=== PATIENT | male | born 1980 | race Caucasian/White ===

== ENCOUNTER 2016-10-23 19:34 | Emergency (ER) | payer BC ==
[~2016-10-23] VITALS: Ht 172.7 cm; Wt 89.4 kg
[~2016-10-23 19:34] MED LIST: BACL10TA PO; CYCL10TA6 PO; KETO10TA PO; MULT-506 PO; NRN600 PO; TRAM-10 PO
[2016-10-23 19:41] VITALS: Ht 172.7 cm; Wt 89.4 kg
[2016-10-23] MEDS ORDERED: KETOROLAC TROMETHAMINE 30 MG/ML VIAL IV STA (20:02)
[2016-10-23] MEDS ORDERED: ONDANSETRON INJ 2 MG/ML 2 ML VIAL IV STA (20:02)
[2016-10-23] MEDS ORDERED: HYDROmorphone INJ 1 MG/ML SYR IV STA ×2 (20:02→21:49)
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
[2016-10-23] MEDS ORDERED: GABA800T PO (21:00)
[2016-10-23] MEDS ORDERED: BACL20TA PO (21:00)
[2016-10-23] MEDS ORDERED: DOXE50CA3 PO (21:00)
[2016-10-23] MEDS ORDERED: CTP/1 PO (21:00)
[2016-10-23] MEDS ORDERED: NALT380I IM (21:00)
[2016-10-23] MEDS ORDERED: ALBU18002 INH (21:00)
[2016-10-23] MEDS ORDERED: SERT-234 PO (21:04)
[2016-10-23] MEDS ORDERED: OXYC1TAB3 PO (21:56)
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
[2016-10-23] MEDS ORDERED: OXYCODONE IR HOME PACK PO ONE (22:00)
[2016-10-23 22:10] VITALS: BP 131/81; PULSE 96; TEMP 36.5; O2SAT 99
== END 2016-10-23 22:10 | disposition home or self-care (01) ==
LOC: C.EDB 19:35 → C.EDC 22:10
DX: M54.5 Low back pain (principal); V19.3XXA Pedal cyclist (driver) (passenger) injured in unspecified nontraffic accident, initial encounter; F17.200 Nicotine dependence, unspecified, uncomplicated; Z87.828 Personal history of other (healed) physical injury and trauma

== ENCOUNTER 2017-07-16 23:06 | Emergency (ER) | payer BC ==
[~2017-07-16] VITALS: Ht 172.7 cm; Wt 87.2 kg
[~2017-07-16 23:06] MED LIST changes: +ALBU18002 INH; -BACL10TA PO; +BACL20TA PO; +CTP/1 PO; +DOXE50CA3 PO; +GABA800T PO; -KETO10TA PO; -MULT-506 PO; +NALT380I IM; -NRN600 PO; +SERT-234 PO; -TRAM-10 PO
[2017-07-16 23:14] VITALS: TEMP 36.4; Ht 172.7 cm; Wt 87.2 kg
[2017-07-16] MEDS ORDERED: KETOROLAC TROMETHAMINE 30 MG/ML VIAL IV STA (23:29)
[2017-07-16] MEDS ORDERED: ONDANSETRON INJ 2 MG/ML 2 ML VIAL IV STA (23:29)
[2017-07-16] MEDS ORDERED: MoRPHine SULFATE 4 MG/ML 1 ML CARP\\VIAL IV STA (23:29)
[2017-07-16] MEDS ORDERED: SODIUM CHLORIDE 0.9% 1000ML 1,000 ML IV STA (23:29)
[2017-07-16 23:55] LABS: BASO % 0.5 %; BASO ABS # 0.05 K/uL (0-0.2); EOS ABS # 0.42 K/uL (0-0.5); HEMATOCRIT 36.8 % (42-52); HEMOGLOBIN 12.7 g/dL (14.0-18.0); IG# 0.02 K/uL (0.00-0.02); LYMPH % 27.2 %; LYMPH ABS # 2.87 K/uL (1.2-3.4); MEAN CELL VOLUME 85.6 fL (80-100); MEAN CORPUSCULAR HEMOGLOBIN 29.5 pg (25-34); MEAN CORPUSCULAR HGB CONC 34.5 g/dl (32-36); MEAN PLATELET VOLUME 8.2 fL (7.4-10.4); MONO % 7.2 %; MONO ABS # 0.76 K/uL (0.11-0.59); NEUT % 60.9 %; NEUT ABS # 6.43 K/uL (1.4-6.5); PLATELET COUNT 319 K/uL (130-400); RED CELL DISTRIBUTION WIDTH CV 13.1 % (11.5-14.5); RED CELL DISTRIBUTION WIDTH SD 40.9 fL (36.4-46.3); WHITE BLOOD COUNT 10.55 K/uL (4.8-10.8)
[2017-07-17 00:07] LABS: ALBUMIN 3.6 gm/dl (3.4-5.0); CALCIUM 7.9 mg/dl (8.5-10.1); CREATININE 1.28 mg/dl (0.60-1.40); POTASSIUM 3.8 mmol/L (3.5-5.1)
[2017-07-17 00:09] LABS: TOTAL PROTEIN 6.5 gm/dl (6.4-8.2)
[2017-07-17] MEDS ORDERED: OPTIRAY 320 IV PRN (00:45)
[2017-07-17] MEDS ORDERED: MoRPHine SULFATE 4 MG/ML 1 ML CARP\\VIAL IV STA (00:56)
[2017-07-17] MEDS ORDERED: ONDANSETRON HOME PACK 4MG OD TAB PO ONE (01:00)
[2017-07-17] MEDS ORDERED: OXYCODONE IR HOME PACK PO ONE (01:00)
--- NOTE | 2017-07-17 01:56 | EMERGENCY ROOM VISIT NOTE ---
History First contact with patient: 23:18 Chief Complaint: BACK PAIN Stated Complaint: BACK PAIN, ABDOMINAL PAIN History of Present Illness The patient is a 37 year old male who presents to the Emergency Room with complaints of severe left flank pain that radiates to his groin described as aching, ranging in severity currently 8 out of 10. Nothing makes it better or worse. Patient plans of left testicular discomfort. No history of epididymitis or torsion. No history of kidney stones. He had sciatica before but this feels different. Patient went to the chiropractor's night with no improvement of his pain. Patient denies chest pain, dyspnea, fever, chills, vomiting, diarrhea, urinary symptoms. No injury to the area. Review of Systems An 10 system review of systems was completed with positives and pertinent negatives listed in the HPI. Past Medical/Surgical History Medical Problems: (1) Back pain (2) Back pain with radiation (3) History of alcohol abuse (4) Intervertebral Disc Disorders W Radiculopathy, Lumbar Region (5) Laceration of left knee (6) Liver enzyme elevation (7) Shortness of breath (8) Shortness of breath Surgical Problems: (1) S/p repair of shoulder dislocation (2) S/P rotator cuff repair Social History Smoking Status: Never Smoker Drug Use: none Marital Status: Housing Status: lives with significant other Occupation Status: employed Current/Historical Medications Scheduled Doxepin (Sinequan), 50-100 MG PO HS Gabapentin (Neurontin), 800 MG PO QID Naltrexone (Vivitrol), 1 DOSE IM UD Sertraline (Zoloft), 100 MG PO DAILY Scheduled PRN Albuterol Sulfate (Proair Respiclick), 2 PUFFS INH Q4H PRN for Wheezing Baclofen (Lioresal), 20 MG PO QID PRN for Muscle Relaxer Clonidine Hcl (Catapres), 0.1 MG PO QID PRN for Anxiety Cyclobenzaprine Hcl (Flexeril), 10 MG PO TID PRN for Muscle Spasm Physical Exam Vital Signs Date Time Temp Pulse Resp B/P (MAP) Pulse Ox O2 Delivery O2 Flow Rate FiO2 07/17/17 01:15 75 16 126/64 97 Room Air 07/16/17 23:14 36.4 87 21 123/81 99 Room Air Physical Exam VITALS: Vitals are noted on the nurse's note and reviewed by myself. Vital signs stable. GENERAL: White male who appears in pain, in no acute distress, nondiaphoretic, well-developed well-nourished. SKIN: Capillary reflex less than 2 seconds. HEENT: Normocephalic. PERRLA. EOMI. Nares patent. Mucous membranes moist. Neck is supple without nuchal rigidity. HEART: Regular rate and rhythm without murmurs gallops or rubs. LUNGS: Clear to auscultation bilaterally without wheezes, rales or rhonchi. No retractions or accessory muscle use. ABDOMEN: Positive bowel sounds x 4. Normal tympanic percussion. Soft, tender to palpation left lower quadrant, without masses or organomegaly. Lopez sign negative. No guarding or rebound tenderness. No CVA tenderness exam: Normal male genitalia, testicles nontender to palpation. No epididymitis tenderness. 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 No pedal edema. No calf tenderness. There is no thoracic or lumbar tenderness. NEURO: Patient was alert and oriented to person place and time. Normal sensation to light and sharp touch. No focal neurological deficits. Medical Decision & Procedures Laboratory Results 07/16/17 23:40 Red Blood Count 4.30, Mean Corpuscular Volume 85.6, Mean Corpuscular Hemoglobin 29.5, Mean Corpuscular Hemoglobin Concent 34.5, Mean Platelet Volume 8.2, Neutrophils (%) (Auto) 60.9, Lymphocytes (%) (Auto) 27.2, Monocytes (%) (Auto) 7.2, Eosinophils (%) (Auto) 4.0, Basophils (%) (Auto) 0.5, Neutrophils # (Auto) 6.43, Lymphocytes # (Auto) 2.87, Monocytes # (Auto) 0.76, Eosinophils # (Auto) 0.42, Basophils # (Auto) 0.05 07/16/17 23:40 Test 07/16/17 23:40 07/16/17 23:50 White Blood Count 10.55 K/uL (4.8-10.8) Red Blood Count 4.30 M/uL (4.7-6.1) Hemoglobin 12.7 g/dL (14.0-18.0) Hematocrit 36.8 % (42-52) Mean Corpuscular Volume 85.6 fL (80-100) Mean Corpuscular Hemoglobin 29.5 pg (25-34) Mean Corpuscular Hemoglobin Concent 34.5 g/dl (32-36) Platelet Count 319 K/uL (130-400) Mean Platelet Volume 8.2 fL (7.4-10.4) Neutrophils (%) (Auto) 60.9 % Lymphocytes (%) (Auto) 27.2 % Monocytes (%) (Auto) 7.2 % Eosinophils (%) (Auto) 4.0 % Basophils (%) (Auto) 0.5 % Neutrophils # (Auto) 6.43 K/uL (1.4-6.5) Lymphocytes # (Auto) 2.87 K/uL (1.2-3.4) Monocytes # (Auto) 0.76 K/uL (0.11-0.59) Eosinophils # (Auto) 0.42 K/uL (0-0.5) Basophils # (Auto) 0.05 K/uL (0-0.2) RDW Standard Deviation 40.9 fL (36.4-46.3) RDW Coefficient of Variation 13.1 % (11.5-14.5) Immature Granulocyte % (Auto) 0.2 % Immature Granulocyte # (Auto) 0.02 K/uL (0.00-0.02) Anion Gap 7.0 mmol/L (3-11) Est Creatinine Clear Calc Drug Dose 83.2 ml/min Estimated GFR () 81.2 Estimated GFR (Non- 70.0 BUN/Creatinine Ratio 11.5 (10-20) Calcium Level 7.9 mg/dl (8.5-10.1) Total Bilirubin 0.2 mg/dl (0.2-1) Direct Bilirubin 0.1 mg/dl (0-0.2) Aspartate Amino Transf (AST/SGOT) 22 U/L (15-37) Alanine Aminotransferase (ALT/SGPT) 37 U/L (12-78) Alkaline Phosphatase 84 U/L (45-117) Total Protein 6.5 gm/dl (6.4-8.2) Albumin 3.6 gm/dl (3.4-5.0) Lipase 120 U/L (73-393) Urine Color DK YELLOW Urine Appearance CLEAR (CLEAR) Urine pH 6.5 (4.5-7.5) Urine Specific [place] 1.023 (1.000-1.030) Urine Protein NEG (NEG) Urine Glucose (UA) NEG (NEG) Urine Ketones NEG (NEG) Urine Occult Blood 3+ (NEG) Urine Nitrite NEG (NEG) Urine Bilirubin NEG (NEG) Urine Urobilinogen NEG (NEG) Urine Leukocyte Esterase NEG (NEG) Urine WBC (Auto) 1-5 /hpf (0-5) Urine RBC (Auto) >30 /hpf (0-4) Urine Hyaline Casts (Auto) 1-5 /lpf (0-5) Urine Epithelial Cells (Auto) 5-10 /lpf (0-5) Urine Bacteria (Auto) NEG (NEG) Medications Administered Medications (Trade) Dose Ordered Sig/Shivam Route Start Time Stop Time Status Last Admin Dose Admin Sodium Chloride 1,000 ml @ 999 mls/hr Q1H1M STAT IV 07/16/17 23:29 07/17/17 00:29 DC 07/16/17 23:41 999 MLS/HR Ondansetron HCl (Zofran Inj) 4 mg NOW STAT IV 07/16/17 23:29 07/16/17 23:31 DC 07/16/17 23:41 4 MG Ketorolac Tromethamine (Toradol Inj) 10 mg NOW STAT IV 07/16/17 23:29 07/16/17 23:31 DC 07/16/17 23:42 10 MG Morphine Sulfate (MoRPHine SULFATE INJ) 4 mg NOW STAT IV 07/16/17 23:29 07/16/17 23:32 DC 07/16/17 23:44 4 MG Morphine Sulfate (MoRPHine SULFATE INJ) 4 mg NOW STAT IV 07/17/17 00:56 07/17/17 00:57 DC 07/17/17 01:12 4 MG ED Course Prior records/ancillary studies reviewed. Triage Nursing notes reviewed. Additional history obtained from the family. The patient's history was concerning for left flank pain. Differential diagnosis: Etiologies such as renal colic, appendicitis, diverticulitis, mesenteric ischemia, aortic pathology, infections, inflammatory bowel disease, PUD, biliary pathology, UTI, as well as others were entertained. Physical examination findings: As above. ER treatment provided: IV fluids, Toradol, morphine, Zofran On reassessment the patient felt better. Diagnostic interpretation by me: The labs revealed no leukocytosis. Urinalysis revealed hematuria. There was no sign of UTI. Imaging studies: CT of the abdomen and pelvis CT ABDOMEN & PELVIS With Contrast: 5 mm calculus at the left proximal ureter near the UPJ. Mild left hydronephrosis. Slight left perinephric stranding. Findings are likely obstructive. Correlate clinically to exclude any superimposed infection. No appendicitis, colitis, diverticulitis or bowel obstruction. No free air, free fluid or other acute disease. Radiologist: Juancarlos Orosco M.D. It appears that the patient has isolated renal colic from a left sided stone. Patient's pain was under control. Patient was neurovascularly and neurologically intact. He is well-appearing. He was advised to take medications as directed, strain his urine until the stone passes and to follow- up with family care and/or urology in a few days here in the ER sooner for severe pain, numbness, tingling, vomiting, worsening signs or symptoms or as needed. Patient had no signs of UTI. He is well-appearing. He requested to leave. By the evaluation outlined above emergent etiologies such as appendicitis, diverticulitis, mesenteric ischemia, aortic pathology, infections, inflammatory bowel disease, PUD, biliary pathology, UTI, as well as others were deemed relatively unlikely. The pt informed about the findings as listed above. All questions were answered and pleased with the treatment. Return instructions were outlined and the patient was discharged in stable condition. Outpatient prescription management: Oxy IR 5mg 1-2 po Q4 hrs prn Zofran Referral: The pt was referred to [facility] for follow up care regarding their stone. or The patient was referred back to their primary care physician for follow-up in 2 to 3 days for a recheck of the current condition. Case reviewed with my attending The chart was completed utilizing [employer] voice recognition software. Grammatical errors, random word insertions, pronoun errors, and incomplete sentences are an occassional consequence of this system due to software limitations, ambient noise, and hardware issues. Any formal questions or concerns about the content, text, or information contained within the body of this dictation should be directly addressed to the physician assistant counsel for clarification. Medical Decision As above [place] Drug Monitoring Program Search Results: patient reviewed within database, no issues identified Medication Reconcilliation Current Medication List: was personally reviewed by me Blood Pressure Screening Patient's blood pressure: Normal blood pressure Impression Primary Impression: Renal colic on left side Departure Information Dispostion Home / Self-Care Condition GOOD Referrals Rik Kumar PA-C (PCP) Patient Instructions [facility] Additional Instructions DO NOT drive, drink alcohol, operate machinery, or perform dangerous activities today. You were given medications in the ER that can affect your ability to safely function or operate a vehicle. Oxycodone Immediate Release (OxyIR) 5mg: Take 1-2 pills every four hours for pain. Avoid alcohol, operating machinery or dangerous equipment, working on ladders or roofs, DRIVING, or situations where being under the influence may be dangerous. It is recommended to use an [id number] stool softener such as Colace, 100mg twice daily while taking this medication to avoid constipation. Zofran 4 mg: Take one every six hours as needed for nausea. Avoid alcohol, operating machinery or dangerous equipment, working on ladders or roofs, DRIVING , or situations where being under the influence may be dangerous. Ibuprofen(Motrin, Advil) may be used for fever or pain. Use 600mg every six hours as needed. Take with food. Avoid using more than 2400mg in a 24 hour period. Do not use 2400mg per day for more than three consecutive days without physician direction. Prolonged inappropriate use can lead to stomach upset or ulcers. This medication can be taken if you need to drive, work, or perform activities which may be dangerous when taking narcotic pain medication. (AND/OR) Acetaminophen(Tylenol) may be used for fever or pain. Use 1000mg every six hours as needed. Avoid using more than 3000mg in a 24 hour period. This medication can be taken if you need to drive, work, or perform activities which may be dangerous when taking narcotic pain medication. Strain your urine and collect all the stones or debris for the urologists. Rest and avoid strenuous activity until your stone passes and symptoms resolve. Drink plenty of fluids. Continue current medications. Return to the ER for worsening abdominal or back pain, vomiting, fevers, passing out, or as needed. Follow up with urology in 2-3 days, call for an appointment.
[2017-07-17] MEDS ORDERED: ONDA4TAB10 SL (02:00)
[2017-07-17] MEDS ORDERED: OXYC1TAB3 PO (02:00)
[2017-07-17 02:11] VITALS: BP 122/80; PULSE 74; O2SAT 97
--- NOTE | 2017-07-17 08:17 | DIAGNOSTIC IMAGING REPORT ---
ABDOMEN AND PELVIS CT WITH IV CONTRAST CT DOSE: 435.01 mGy.cm HISTORY: Left lower quadrant pain. TECHNIQUE: Multiaxial CT images of the abdomen and pelvis were performed following the use of intravenous contrast. A dose lowering technique was utilized adhering to the principles of ALARA. COMPARISON STUDY: None. FINDINGS: Mild dependent changes at the lung bases posteriorly. No pneumoperitoneum. No pneumatosis. No fractures within the visualized osseous structures. The liver, gallbladder, pancreas, spleen, adrenal glands, and right kidney are unremarkable. Delayed left nephrogram. This is secondary to an obstructing 4 mm stone within the left ureterovesical junction resulting and mild left hydronephrosis. Normal bladder. No retroperitoneal lymphadenopathy. No bowel wall thickening or obstruction. Normal appendix. Moderate stool seen throughout the colon. IMPRESSION: A 4 mm obstructing stone within the left ureteropelvic junction resulting in mild left hydronephrosis. Electronically signed by: Alfredo Betancourt M.D. 07/17/2017 8:15 AM Dictated Date/Time: 07/17/2017 8:08 AM
== END 2017-07-17 02:12 | disposition home or self-care (01) ==
LOC: C.EDB 23:06
DX: N23 Unspecified renal colic (principal); Z79.899 Other long term (current) drug therapy

== ENCOUNTER 2017-07-19 12:33 | Inpatient (IN) | payer BC ==
[~2017-07-19] VITALS: Ht 172.7 cm; Wt 84.1 kg
[~2017-07-19 12:33] MED LIST changes: +ONDA4TAB10 SL; +OXYC1TAB3 PO
[2017-07-19] MEDS ORDERED: KETOROLAC TROMETHAMINE 30 MG/ML VIAL IV STA (12:53)
[2017-07-19] MEDS ORDERED: ONDANSETRON INJ 2 MG/ML 2 ML VIAL IV STA (12:53)
[2017-07-19] MEDS ORDERED: SODIUM CHLORIDE 0.9% 1000ML 1,000 ML IV STA (12:53)
[2017-07-19 13:25] LABS: BASO % 0.4 %; BASO ABS # 0.04 K/uL (0-0.2); EOS % 3.1 %; EOS ABS # 0.35 K/uL (0-0.5); HEMATOCRIT 39.3 % (42-52); IG# 0.03 K/uL (0.00-0.02); LYMPH % 15.2 %; LYMPH ABS # 1.72 K/uL (1.2-3.4); MEAN CELL VOLUME 84.2 fL (80-100); MEAN CORPUSCULAR HGB CONC 35.6 g/dl (32-36); MEAN PLATELET VOLUME 8.2 fL (7.4-10.4); MONO % 4.8 %; MONO ABS # 0.55 K/uL (0.11-0.59); NEUT % 76.2 %; NEUT ABS # 8.66 K/uL (1.4-6.5); PLATELET COUNT 348 K/uL (130-400); RED CELL DISTRIBUTION WIDTH SD 39.2 fL (36.4-46.3); WHITE BLOOD COUNT 11.35 K/uL (4.8-10.8)
[2017-07-19 13:42] LABS: CALCIUM 9.1 mg/dl (8.5-10.1); CREATININE 0.99 mg/dl (0.60-1.40); POTASSIUM 3.6 mmol/L (3.5-5.1)
--- NOTE | 2017-07-19 13:47 | DIAGNOSTIC IMAGING REPORT ---
KUB CLINICAL HISTORY: Known stone, L abd and testicular pain pain COMPARISON STUDY: CT abdomen and pelvis 07/17/2017 FINDINGS: Nonvisualization of the bulk of the renal shadows due to overlying bowel content and bowel air. Nonobstructive bowel pattern. Small pelvic vascular calcification. IMPRESSION: Nondiagnostic study of the left upper urinary tracts due to overlying bowel gas. Minimal nonobstructive ileus. The above report was generated using voice recognition software. It may contain grammatical, syntax or spelling errors. Electronically signed by: Suraj Cerda M.D. 07/19/2017 1:46 PM Dictated Date/Time: 07/19/2017 1:44 PM
[2017-07-19] MEDS ORDERED: MoRPHine SULFATE 4 MG/ML 1 ML CARP\\VIAL IV STA (14:36)
--- NOTE | 2017-07-19 14:54 | DIAGNOSTIC IMAGING REPORT ---
RENAL ULTRASOUND HISTORY: Left ureteral stone, L abdominal and testicular pain COMPARISON: Abdomen and pelvis CT 07/17/2017. FINDINGS: Right kidney: 12 cm. No hydronephrosis. Normal corticomedullary differentiation and cortical thickness. Left kidney: 12 cm. No change in the mild left hydronephrosis. Normal corticomedullary differentiation and cortical thickness. Bladder: No bladder wall thickening. The bilateral ureteral jets were identified. IMPRESSION: 1. No change in mild left hydronephrosis. 2. Normal right kidney. Electronically signed by: Alfredo Betancourt M.D. 07/19/2017 2:52 PM Dictated Date/Time: 07/19/2017 2:50 PM
--- NOTE | 2017-07-19 15:42 | DIAGNOSTIC IMAGING REPORT ---
CHEST ONE VIEW PORTABLE CLINICAL HISTORY: PRE OP preoperative evaluation COMPARISON STUDY: 02/28/2016 FINDINGS: The bones soft tissues and hemidiaphragms are normal. The cardiomediastinal silhouette is normal. The lungs are clear. The pulmonary vasculature is normal. IMPRESSION: Negative chest. The above report was generated using voice recognition software. It may contain grammatical, syntax or spelling errors. Electronically signed by: Suraj Cerda M.D. 07/19/2017 3:41 PM Dictated Date/Time: 07/19/2017 3:40 PM
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
[2017-07-19] MEDS ORDERED: ACETAMINOPHEN 325 MG TAB PO PRN (15:45)
[2017-07-19] MEDS ORDERED: ALUMINUM/MAGNESIUM/SIMETH (MAALOX MAX) 30 ML UDC PO PRN (15:45)
[2017-07-19] MEDS ORDERED: MAGNESIUM HYDROXIDE SUSP 30 ML UDC PO PRN ×2 (15:45→19:30)
[2017-07-19] MEDS ORDERED: ONDANSETRON INJ 2 MG/ML 2 ML VIAL IV PRN (15:45)
[2017-07-19] MEDS ORDERED: POLYETHYLENE (MIRALAX) 17 GM PACK PO PRN (15:45)
[2017-07-19] MEDS ORDERED: HYDROmorphone INJ 0.5 MG/0.5 ML SYR IV PRN (15:45)
[2017-07-19 15:53] LABS: INR 0.9 (0.9-1.1)
[2017-07-19 16:07] VITALS: O2SAT 99
--- NOTE | 2017-07-19 16:44 | EMERGENCY ROOM VISIT NOTE ---
History First contact with patient: 12:47 Chief Complaint: KIDNEY STONE Stated Complaint: RENAL STONE History of Present Illness The patient is a 37 year old male who presents to the Emergency Room via private vehicle with complaints of "kidney stone". The patient states that he was seen here a few days ago and was diagnosed with a kidney stone on the left side. He states that he was discharged home to attempt to pass the stone. He notes that this has been unsuccessful and now the pain is excruciating. He rates the overall pain is a 9/10. It is in the same region described as left lower quadrant and into his left testicle. He has been trying the 5 mg oxycodone tablets without relief. He last had one of these at 4:30 AM. No fevers. He denies seeing blood in the urine. He has never seen urology in the past. Review of Systems A complete 10-point Review of Systems was discussed with the patient, with pertinent positives and negatives listed in the History of Present Illness. All remaining Review of Systems questions can be considered negative unless otherwise specified. Past Medical/Surgical History Medical Problems: (1) Back pain (2) Back pain with radiation (3) History of alcohol abuse (4) Intervertebral Disc Disorders W Radiculopathy, Lumbar Region (5) Laceration of left knee (6) Liver enzyme elevation (7) Renal stone (8) Shortness of breath (9) Shortness of breath Surgical Problems: (1) S/p repair of shoulder dislocation (2) S/P rotator cuff repair Social History Smoking Status: Current Every Day Smoker Drug Use: none Marital Status: Housing Status: lives with significant other Occupation Status: employed Current/Historical Medications Scheduled Doxepin (Sinequan), 50-100 MG PO HS Gabapentin (Neurontin), 800 MG PO QID Sertraline (Zoloft), 100 MG PO DAILY Scheduled PRN Baclofen (Lioresal), 20 MG PO QID PRN for Muscle Relaxer Oxycodone Immediate Rel Tab (Roxicodone Ir), 1-2 TAB PO Q4H PRN for Severe Pain Physical Exam Vital Signs Date Time Temp Pulse Resp B/P (MAP) Pulse Ox O2 Delivery O2 Flow Rate FiO2 07/19/17 14:54 73 145/85 100 Room Air 07/19/17 12:45 36.7 84 20 142/96 96 Room Air Physical Exam VITAL SIGNS - Vital signs and nursing notes were reviewed. Stable. GENERAL -37-year-old male appearing his stated age who is in no acute distress. Communicates well with provider and answers questions appropriately. SKIN - Without rashes. No meningeal or petechial rash. HEAD - NC/AT. EYES - Sclera anicteric. EARS - No deformities of external structures noted on gross examination bilaterally. NOSE - Midline and without cyanosis. No epistaxis or purulent drainage noted. MOUTH/OROPHARYNX - Without perioral cyanosis. LUNGS - Chest wall symmetric without accessory muscle use, intercostals retractions, or central cyanosis. Normal vesicular breath sounds CTA B/L. No wheezes, rales, or rhonchi appreciated. CARDIAC - RRR with S1/S2. No murmur, rubs, or gallops appreciated. ABDOMEN - Abdominal contour normal without pulsations or visible masses. BS normoactive all four quadrants. No tenderness, palpable masses, hepatosplenomegaly, or ascites noted. Medical Decision & Procedures ER Provider Diagnostic Interpretation: RENAL ULTRASOUND HISTORY: Left ureteral stone, L abdominal and testicular pain COMPARISON: Abdomen and pelvis CT 07/17/2017. FINDINGS: Right kidney: 12 cm. No hydronephrosis. Normal corticomedullary differentiation and cortical thickness. Left kidney: 12 cm. No change in the mild left hydronephrosis. Normal corticomedullary differentiation and cortical thickness. Bladder: No bladder wall thickening. The bilateral ureteral jets were identified. IMPRESSION: 1. No change in mild left hydronephrosis. 2. Normal right kidney. Electronically signed by: Alfredo Betancourt M.D. 07/19/2017 2:52 PM Dictated Date/Time: 07/19/2017 2:50 PM KUB CLINICAL HISTORY: Known stone, L abd and testicular pain pain COMPARISON STUDY: CT abdomen and pelvis 07/17/2017 FINDINGS: Nonvisualization of the bulk of the renal shadows due to overlying bowel content and bowel air. Nonobstructive bowel pattern. Small pelvic vascular calcification. IMPRESSION: Nondiagnostic study of the left upper urinary tracts due to overlying bowel gas. Minimal nonobstructive ileus. The above report was generated using voice recognition software. It may contain grammatical, syntax or spelling errors. Electronically signed by: Suraj Cerda M.D. 07/19/2017 1:46 PM Dictated Date/Time: 07/19/2017 1:44 PM Laboratory Results 07/19/17 13:15 Red Blood Count 4.67, Mean Corpuscular Volume 84.2, Mean Corpuscular Hemoglobin 30.0, Mean Corpuscular Hemoglobin Concent 35.6, Mean Platelet Volume 8.2, Neutrophils (%) (Auto) 76.2, Lymphocytes (%) (Auto) 15.2, Monocytes (%) (Auto) 4.8, Eosinophils (%) (Auto) 3.1, Basophils (%) (Auto) 0.4, Neutrophils # (Auto) 8.66, Lymphocytes # (Auto) 1.72, Monocytes # (Auto) 0.55, Eosinophils # (Auto) 0.35, Basophils # (Auto) 0.04 07/19/17 13:15 Test 07/19/17 13:15 07/19/17 14:50 White Blood Count 11.35 K/uL (4.8-10.8) Red Blood Count 4.67 M/uL (4.7-6.1) Hemoglobin 14.0 g/dL (14.0-18.0) Hematocrit 39.3 % (42-52) Mean Corpuscular Volume 84.2 fL (80-100) Mean Corpuscular Hemoglobin 30.0 pg (25-34) Mean Corpuscular Hemoglobin Concent 35.6 g/dl (32-36) Platelet Count 348 K/uL (130-400) Mean Platelet Volume 8.2 fL (7.4-10.4) Neutrophils (%) (Auto) 76.2 % Lymphocytes (%) (Auto) 15.2 % Monocytes (%) (Auto) 4.8 % Eosinophils (%) (Auto) 3.1 % Basophils (%) (Auto) 0.4 % Neutrophils # (Auto) 8.66 K/uL (1.4-6.5) Lymphocytes # (Auto) 1.72 K/uL (1.2-3.4) Monocytes # (Auto) 0.55 K/uL (0.11-0.59) Eosinophils # (Auto) 0.35 K/uL (0-0.5) Basophils # (Auto) 0.04 K/uL (0-0.2) RDW Standard Deviation 39.2 fL (36.4-46.3) RDW Coefficient of Variation 13.0 % (11.5-14.5) Immature Granulocyte % (Auto) 0.3 % Immature Granulocyte # (Auto) 0.03 K/uL (0.00-0.02) Prothrombin Time 9.6 SECONDS (9.0-12.0) Prothromb Time International Ratio 0.9 (0.9-1.1) Anion Gap 8.0 mmol/L (3-11) Est Creatinine Clear Calc Drug Dose 108.0 ml/min Estimated GFR () 110.7 Estimated GFR (Non- 95.5 BUN/Creatinine Ratio 11.3 (10-20) Calcium Level 9.1 mg/dl (8.5-10.1) Urine Color YELLOW Urine Appearance CLEAR (CLEAR) Urine pH 6.5 (4.5-7.5) Urine Specific [place] 1.009 (1.000-1.030) Urine Protein NEG (NEG) Urine Glucose (UA) NEG (NEG) Urine Ketones NEG (NEG) Urine Occult Blood 3+ (NEG) Urine Nitrite NEG (NEG) Urine Bilirubin NEG (NEG) Urine Urobilinogen NEG (NEG) Urine Leukocyte Esterase TRACE (NEG) Urine WBC (Auto) 1-5 /hpf (0-5) Urine RBC (Auto) 10-30 /hpf (0-4) Urine Hyaline Casts (Auto) 0 /lpf (0-5) Urine Epithelial Cells (Auto) 0-5 /lpf (0-5) Urine Bacteria (Auto) NEG (NEG) Medications Administered Medications (Trade) Dose Ordered Sig/Shivam Route Start Time Stop Time Status Last Admin Dose Admin Sodium Chloride 1,000 ml @ 999 mls/hr Q1H1M STAT IV 07/19/17 12:53 07/19/17 13:53 DC 07/19/17 13:14 999 MLS/HR Ondansetron HCl (Zofran Inj) 4 mg NOW STAT IV 07/19/17 12:53 07/19/17 13:00 DC 07/19/17 13:15 4 MG Ketorolac Tromethamine (Toradol Inj) 30 mg NOW STAT IV 07/19/17 12:53 07/19/17 13:00 DC 07/19/17 13:15 30 MG Morphine Sulfate (MoRPHine SULFATE INJ) 4 mg NOW STAT IV 07/19/17 14:36 07/19/17 14:37 DC 07/19/17 14:47 4 MG Medical Decision Patient was seen and evaluated as above in room C5. Review was performed of nursing notes and vital signs. After obtaining a thorough history and physical examination the above work up was performed. He presents to us today with known kidney stone on the left side. He has tried to pass this at home without relief. CBC reveals slight leukocytosis. No concerning anemia. Metabolic panel reveals no emergent process. KUB and ultrasound obtained. Persistence of the left-sided hydronephrosis. Patient prefers to stay for management of this. I discussed this with Dr. Le, [facility] hospitalist. I also spoke with Dr. Martinez, urology. Patient was admitted to medicine for further evaluation and management. I attest that I have personally reviewed the patient medication list. I attest that I have reviewed the patient's blood pressure and it was found to be elevated likely secondary to situation In the evaluation and treatment of this patient the following differential diagnoses were entertained: Pyelonephritis, UTI, retained stone, appendicitis, diverticulitis, among others. Impression Primary Impression: UPJ (ureteropelvic junction) obstruction Departure Information Referrals Rik Kumar PA-C (PCP) Patient Instructions My [facility]
[2017-07-19 16:45] VITALS: Ht 172.7 cm; Wt 84.1 kg
[2017-07-19] MEDS ORDERED: CEFTRIAXONE SOD INJ 1 GM in DEXTROSE 5% ADD-VANTAGE 50ML 50 ML IV SCH (17:00)
[2017-07-19 17:15] VITALS: BP 131/82; PULSE 68; TEMP 36.8; O2SAT 97
[2017-07-19] MEDS: LACTATED RINGER'S 1000ML 1,000 ML IV SCH (17:37)
[2017-07-19] MEDS ORDERED: BISACODYL 10 MG SUPP PR STA (19:27)
[2017-07-19] MEDS ORDERED: MAGNESIUM HYDROXIDE SUSP 30 ML UDC PO ONE (19:30)
[2017-07-19] MEDS: KETOROLAC TROMETHAMINE 30 MG/ML VIAL IV PRN (19:44)
[2017-07-19] MEDS: HYDROmorphone INJ 0.5 MG/0.5 ML SYR IV PRN (21:17)
--- NOTE | 2017-07-19 21:35 | GENITOURINARY CONSULTATION ---
DATE OF CONSULTATION: 07/19/2017 REASON FOR THE CONSULT: Proximal left ureteral stone. INDICATIONS: The patient is a 37-year-old male with no previous history of stones who presented on Sunday with a proximal stone seen on his CT scan that was measured to be approximately 4 mm just below the left UPJ. The patient was discharged to home with oral pain medicine but the pain recurred in the similar place and he returned today. A KUB was done, but he had so much bowel gas that it was difficult to see the stone. The stone did not appear to be in the pelvis. The patient denies any fevers or nausea, has had a bowel movement today but also feels a little distended. He did feel like he had a bowel movement the day he came in on Sunday. He denies significant constipation. He is afebrile. I have discussed with the patient all the options that include lithotripsy tomorrow, which would mean he would have to be discharged prior to the stent placement, ureteroscopy if the stone goes into the distal ureter. I explained that if he has a stent, he probably would be a candidate for either lithotripsy or ureteroscopy later next week or the following week. I answered all the questions, discussed this with the patient for over 20 minutes and left and will get back in go over the consent for both stent placement and ESWL without a stent prior to her leaving [facility]. PAST MEDICAL HISTORY: Significant for back pain and shoulder surgery, 3 on the left and 1 on the right. MEDICATIONS: Neurontin. SOCIAL HISTORY: He does not take any blood thinners, aspirin, fish oil, or Advil. He does smoke but he does not drink alcohol. ALLERGIES: He has no known drug allergies. PHYSICAL EXAMINATION: HEENT: Within normal limits. NECK: Supple. HEENT: Unremarkable. LUNGS: He has no respiratory distress. EXTREMITIES: Ankles without pedal edema. Unremarkable ABDOMEN: He does have left flank pain to percussion. Abdomen is mildly distended without significant pain. NEUROLOGIC: He is alert and oriented without any focal sensory deficits. ASSESSMENT: Proximal left stone. PLAN: Make the patient n.p.o. I asked him to drink clear liquids tonight. We will give him milk of magnesia now as well as a Dulcolax suppository, milk of magnesia later. We will also get a KUB first thing in the morning. The patient will have to decide early whether he can tolerate being discharged, but if he has significant pain may be best just to place a stent. If his pain is tolerable and he understands that there is a risk that that ESWL would not work or would not even be possible then we could discharge him for a chance of ESWL. The patient will contemplate this overnight. We will have to make a decision early in the morning.
[2017-07-19 23:05] VITALS: BP 135/83; PULSE 70; TEMP 36.6; O2SAT 94
[2017-07-20] MEDS: LACTATED RINGER'S 1000ML 1,000 ML IV SCH ×2 (00:59→07:42)
[2017-07-20 07:22] LABS: HEMATOCRIT 37.4 % (42-52); HEMOGLOBIN 12.9 g/dL (14.0-18.0); MEAN CELL VOLUME 85.2 fL (80-100); MEAN CORPUSCULAR HEMOGLOBIN 29.4 pg (25-34); MEAN CORPUSCULAR HGB CONC 34.5 g/dl (32-36); MEAN PLATELET VOLUME 8.5 fL (7.4-10.4); PLATELET COUNT 335 K/uL (130-400); RED CELL DISTRIBUTION WIDTH CV 12.9 % (11.5-14.5); RED CELL DISTRIBUTION WIDTH SD 39.8 fL (36.4-46.3); WHITE BLOOD COUNT 7.46 K/uL (4.8-10.8)
[2017-07-20 07:27] VITALS: BP 166/97; PULSE 67; TEMP 36.3; O2SAT 98
[2017-07-20] MEDS: HYDROmorphone INJ 0.5 MG/0.5 ML SYR IV PRN (07:33)
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
[2017-07-20 07:47] LABS: ALBUMIN 3.4 gm/dl (3.4-5.0); CALCIUM 8.5 mg/dl (8.5-10.1); CREATININE 1.06 mg/dl (0.60-1.40)
[2017-07-20 07:50] LABS: TOTAL PROTEIN 6.2 gm/dl (6.4-8.2)
--- NOTE | 2017-07-20 08:40 | DIAGNOSTIC IMAGING REPORT ---
KUB CLINICAL HISTORY: 37 years-old Male presenting with ureteral stone. TECHNIQUE: Single supine view of the abdomen was obtained. COMPARISON: 07/19/[address] from 07/17/2017. FINDINGS: Nonobstructive bowel gas pattern. Moderate stool burden. No gross pneumoperitoneum. The proximal left ureteral calculus is unchanged in position projecting at the level of the left transverse process of L3. Punctate bilateral nephrolithiasis evident on recent CT is not immediately apparent. Osseous structures normal. Lung bases clear. IMPRESSION: 1. Unchanged position of the proximal left ureteral calculus projecting at the level of L3. 2. Additional punctate bilateral nephrolithiasis not radiographically apparent. Electronically signed by: Kaden Snider M.D. 07/20/2017 8:38 AM Dictated Date/Time: 07/20/2017 8:33 AM
[2017-07-20] MEDS: KETOROLAC TROMETHAMINE 30 MG/ML VIAL IV PRN (08:49)
[2017-07-20] MEDS ORDERED: PANTOprazole SOD 40 MG TAB PO SCH (09:00)
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
--- NOTE | 2017-07-20 09:38 | Discharge Instructions ---
Discharge Instructions Date of Service July 20, 2017. Admission Reason for Admission: Renal Stone Discharge Discharge Diagnosis / Problem: L Renal Stone Discharge Goals Goal(s): Decrease discomfort, Improve function, Diagnostic testing, Therapeutic intervention Activity Recommendations Activity Limitations: resume your previous activity . Instructions / Follow-Up Instructions / Follow-Up Please follow-up with primary care and urology after procedure at outpatient surgical center Stay well hydrated Current Hospital Diet Patient's current hospital diet: Regular Diet Discharge Diet Recommended Diet: Regular Diet Pending Studies Studies pending at discharge: no Medical Emergencies . Who to Call and When: Medical Emergencies: If at any time you feel your situation is an emergency, please call 911 immediately. . Non-Emergent Contact Non-Emergency issues call your: Primary Care Provider, Urologist . . "Provider Documentation" section prepared by Randolph Mott. .
--- NOTE | 2017-07-20 09:39 | Discharge Summary ---
Discharge Summary Date of Service July 20, 2017. Discharge Summary Admission Date: July 19, 2017 at 15:30 Discharge Date: July 20, 2017 Discharge Disposition: Home Principal Diagnosis: L Renal Calculi Depression Lumbar Radiculopathy Medication Reconciliation Continued Medications: Baclofen (Lioresal) 20 Mg Tab 20 MG PO QID PRN for Muscle Relaxer, TAB Doxepin (Sinequan) 50 Mg Cap 50-100 MG PO HS, CAP Gabapentin (Neurontin) 800 Mg Tab 800 MG PO QID, TAB Oxycodone Immediate Rel Tab (Roxicodone Ir) 5 Mg Tab 1-2 TAB PO Q4H PRN for Severe Pain, #15 TAB Sertraline (Zoloft) 100 Mg Tab 100 MG PO DAILY, TAB Admission Information HPI (per Admitting provider): This is a 37-year-old male with no significant past medical history except for chronic low back pain, was seen in the ER 2 days ago with complaint of left- sided flank/back pain CT abdomen pelvis showed 4 mm obstructed stone at the left ureter Patient was given IV fluids Labs were unremarkable Was just discharged home with pain medication and recommendation for outpatient follow-up with urology Patient did will yesterday, had an minimal flank pain, able to go back to work Last night developed severe pain on the left flank with radiation down to left inguinal area and groin No fever or chills Had nausea one episode of vomiting secondary to pain Did not see any blood in urine Patient admitted to medical floor for renal colic/left sided ureteric stone unable to pass spontaneously Possibly need urologic intervention Physical Exam (per Admitting): General Appearance: + mild distress Head: normocephalic, atraumatic Eyes: normal inspection, PERRL, EOMI, sclerae normal Neck: thyroid normal, no carotid bruits, trachea midline Respiratory/Chest: chest non-tender, lungs clear, normal breath sounds, no respiratory distress Cardiovascular: regular rate, rhythm Abdomen/GI: soft Back: + left CVA tenderness Extremities/Musculoskelatal: no calf tenderness, normal capillary refill, no pedal edema Neurologic/Psych: no motor/sensory deficits, alert, normal mood/affect, oriented x 3 Skin: normal color, warm/dry, no rash Lymphatic: no adenopathy Hospital Course This is a 37 year old male with a past medical history of depression, lumbar radiculopathy - presents with a L renal stone L Renal Colic - 4mm stone on the L - pain is controlled - plan is to d/c to outpatient surgical center - ESWL is the ultimate plan as an outpatient - no need for abx. at this time - should have cultures sent out as outpatient Depression - continue Zoloft Lumbar Radiculopathy - continue Baclofen and Gabapentin FULL CODE Total time spent on discharge = 15 minutes This includes examination of the patient, discharge planning, medication reconciliation, and communication with other providers. Discharge Instructions Please follow-up with primary care and urology after procedure at outpatient surgical center Stay well hydrated
[2017-07-20 09:48] VITALS: BP 166/97; PULSE 67; TEMP 36.3; O2SAT 98
[2017-07-20 10:07] VITALS: BP 120/86
[2017-07-20] MEDS ORDERED: KETO10TA IV (11:24)
[2017-07-20] MEDS ORDERED: HYDR2TAB48 IV (11:27)
[2017-07-20] MEDS ORDERED: ONDA4TAB46 IV ×2 (11:30→14:42)
[2017-07-20] MEDS ORDERED: TAMS0.4C38 PO (14:42)
[2017-07-20] MEDS ORDERED: OXYC1TAB3 PO (14:42)
== END 2017-07-20 10:50 | disposition home or self-care (01) | DRG 690 ==
LOC: C.EDB 12:34 → C.MSN 15:30 → ENRESERV 15:49
PROVIDERS: ADMIT Hospitalist; ATTEND Family Medicine
DX: N13.6 Pyonephrosis (principal); N23 Unspecified renal colic; F32.9 Major depressive disorder, single episode, unspecified; M54.16 Radiculopathy, lumbar region; F17.200 Nicotine dependence, unspecified, uncomplicated; Z79.899 Other long term (current) drug therapy

== ENCOUNTER → 2017-07-20 | Day surgery (SDC) | payer BC ==
[~2017-07-20] MED LIST changes: -ALBU18002 INH; +ATROPINE SULFATE 0.1 MG/ML 5ML SYR IV PRN; +CIPROFLOXACIN / D5W 400 MG IV SCH; -CTP/1 PO; -CYCL10TA6 PO; +DEXAMETHASONE SOD INJ 4 MG/ML VIAL ONE; +FENTANYL CITRATE INJ 50 MCG/1 ML 2 ML VIAL IV PRN; +FENTANYL CITRATE INJ 50 MCG/1 ML 2 ML VIAL ONE; +HYDR2TAB48 IV; +HYDROmorphone INJ 2 MG/ML SYR/VIAL IV PRN; +KETO10TA IV; +LABETALOL HCL IV 5 MG/ML 20ML IV PRN; +LIDOCAINE HCL 2% 2 ML VIAL (20MG/ML) ONE; +MIDAZOLAM HCL 1 MG/ML 2ML VIAL ONE; -NALT380I IM; -ONDA4TAB10 SL; +ONDA4TAB46 IV; +ONDANSETRON INJ 2 MG/ML 2 ML VIAL IV PRN; +ONDANSETRON INJ 2 MG/ML 2 ML VIAL ONE; +OXYCODONE/ACETAMINOPHEN 5-325 TAB PO PRN; +PROPOFOL IV EMULSION 10 MG/ML 20 ML VIAL ONE; +TAMS0.4C38 PO
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
--- NOTE | 2017-07-20 14:44 | Discharge Instructions ---
Discharge Instructions Date of Service July 20, 2017. Admission Reason for Admission: Left Ureteral Stone Discharge Discharge Diagnosis / Problem: Left ureteral stone s/p ESWL Discharge Goals Goal(s): Decrease discomfort, Improve function, Improve disease control, Therapeutic intervention Activity Recommendations Activity Limitations: as noted below Lifting Limitations: no more than 25 pounds, gradually increase as tolerated Exercise/Sports Limitations: rest today, gradually increase as tolerated May Resume Sexual Activity: when tolerated Shower/Bathe: no limitations Driving or Machine Use: resume 1 day after discharge . Instructions / Follow-Up Instructions / Follow-Up Postoperative visit on Jul 31 2017 at 10:40 AM with KUB Xray before visit. Current Hospital Diet Patient's current hospital diet: Discharge Diet Recommended Diet: Regular Diet (good fluid intake) Procedures Procedures Performed: Left upper ureteral extracorporeal shockwave lithotripsy Pending Studies Studies pending at discharge: yes List of pending studies: KUB Xray at follow-up visit Medical Emergencies . Who to Call and When: Medical Emergencies: If at any time you feel your situation is an emergency, please call 911 immediately. . Non-Emergent Contact Non-Emergency issues call your: Urologist Call Non-Emergent contact if: you have a fever, temperature is above 101, your pain is not controlled, your pain is worsening, your pain is unusual for you, your pain is concerning you, you have any medication questions . . "Provider Documentation" section prepared by Harry Booker. . [place] Drug Monitoring Program Search Results: patient reviewed within database, see additional documentation (recent narcotic Rx for stone pain, previously summer 2016. Refill provided for postop analgesia)
--- NOTE | 2017-07-20 15:40 | [facility] Post Operative Brief Note ---
Immediate Operative Summary Operative Date July 20, 2017. Pre-Operative Diagnosis Left Ureteral Calculi Post-Operative Diagnosis same Procedure(s) Performed Left Extracorporeal Shock Wave Lithotripsy Surgeon Dr. Booker Cardiographer Surgeon(s) None Estimated Blood Loss 0ml Findings Consistent with Post-Op Diagnosis Specimens None Drains None Anesthesia Type General Complication(s) none Disposition Accompanied Pt To Recover: no Disposition: Recovery Room / PACU
--- NOTE | 2017-07-20 15:49 | OPERATIVE REPORT ---
DATE OF OPERATION: 07/20/2017 PREOPERATIVE DIAGNOSIS: Left symptomatic mid ureteral stone. POSTOPERATIVE DIAGNOSIS: Left symptomatic mid ureteral stone. PROCEDURE: Left-sided ureteral extracorporeal shockwave lithotripsy. SURGEON: Dr. Harry Booker HOSPICE MUSIC THERAPY: None. ANESTHESIA: General anesthesia with laryngeal mask. COMPLICATIONS: None. FINDINGS: Excellent stone fragmentation on fluoroscopy. DETAILS OF PROCEDURE: The patient was brought to the litho suite. He was correctly identified and the stone was visualized on his most recent x-rays. After the correct time out was performed the patient was positioned over the therapy head. An adequate level of anesthesia was administered. The extracorporeal shockwave lithotripsy treatment was then commenced. Please see the [facility] sheet for complete treatment summary. After completion of the procedure the patient was taken to the recovery room in stable condition. I attest to the content of the Intraoperative Record and any orders documented therein. Any exception s are noted below.
[2017-07-20 16:22] VITALS: TEMP 36.4
--- NOTE | 2017-07-20 16:51 | Anesthesia Progress Nt - [facility] ---
Anesthesia Post Op Note Date & Time July 20, 2017 at 16:51 Vital Signs Pain Intensity: 4.0 Vital Signs Past 12 Hours Date Time Temp Pulse Resp B/P (MAP) Pulse Ox O2 Delivery O2 Flow Rate FiO2 07/20/17 16:22 36.4 81 20 130/78 (95) 97 Room Air 07/20/17 16:15 117/86 07/20/17 16:14 75 17 07/20/17 16:14 75 17 95 07/20/17 16:12 37.0 80 20 117/86 95 Room Air 07/20/17 16:10 129/80 07/20/17 16:09 83 17 07/20/17 16:09 84 17 96 07/20/17 16:06 119/72 07/20/17 16:04 79 23 100 07/20/17 16:04 80 23 07/20/17 16:00 127/73 07/20/17 15:59 76 27 100 07/20/17 15:59 77 27 07/20/17 15:55 112/73 07/20/17 15:54 78 16 07/20/17 15:54 78 16 100 07/20/17 15:50 117/76 07/20/17 15:49 86 17 100 07/20/17 15:49 85 17 07/20/17 15:46 122/75 07/20/17 15:44 36.5 84 20 131/76 99 Mask 6 07/20/17 15:44 131/76 07/20/17 11:12 36.5 92 18 134/91 (105) 98 Room Air Notes Mental Status: alert / awake / arousable, participated in evaluation Pt Amnestic to Procedure: Yes Nausea / Vomiting: adequately controlled Pain: adequately controlled Airway Patency, RR, SpO2: stable & adequate BP & HR: stable & adequate Hydration State: stable & adequate Anesthetic Complications: no major complications apparent
[2017-07-20 17:00] VITALS: BP 145/81; PULSE 72; O2SAT 98
== END | disposition home or self-care (01) ==
LOC: X.SURG 10:48
PROVIDERS: ATTEND Urology
DX: N20.1 Calculus of ureter (principal); N23 Unspecified renal colic; Z87.442 Personal history of urinary calculi; F17.210 Nicotine dependence, cigarettes, uncomplicated; K21.9 Gastro-esophageal reflux disease without esophagitis; F90.9 Attention-deficit hyperactivity disorder, unspecified type

== ENCOUNTER 2020-08-02 12:44 | Inpatient (IN) ==
--- NOTE | 2020-08-02 13:22 | Emergency Department Note ---
Impression & Plan Alcoholic intoxication, Suicidal ideation ED Provider Note NAME: AZRA ABDI AGE: 40 SEX: M : 1980 ARRIVES VIA: Walk-In INFORMANT: Patient, ED PROVIDER(S): Nish Tran MD Chief Complaint: Suicidality, anxiety HPI: Patient does present with worsening anxiety and concern for wanting to harm himself. The patient does have a history of harming self back in November and did require life loading. The patient denies any fevers chills chest pain shortness of breath but does feel increasingly anxious. The patient does drink alcohol and did drink approximately 3 beers this morning. The patient denies taking any illicit or harmful substances. The patient denies any tobacco or drug use. Patient denies any HI or AVH. Patient states his sleep and appetite have been okay. Patient is a of [employer]. ROS: See HPI for pertinent positives and negatives. A total of 10 systems were r eviewed and otherwise negative. Past medical history: See below Surgical history: See below Social history: See below Physical Exam: GENERAL: Pacing about the room, anxious in appearance. EYE EXAM: Normal conjunctiva. PERRL, no anisocoria and EOM's grossly intact w/o pain. NECK: Supple, no nuchal rigidity, no adenopathy, non-tender. No signs of meningismus. LUNGS: Clear to auscultation. Normal chest wall mechanics. HEART: NSR, no MRG. ABDOMEN: Abdomen soft, non-tender, normo-active bowel sounds, no masses, no rebound or guarding. BACK: No CVA TTP. SKIN: No rashes and no bruising. UPPER EXTREMITIES: Upper extremities are grossly normal. LOWER EXTREMITIES: Grossly normal, no edema. NEURO EXAM: A&O x3, cranial nerves II-XII grossly intact, normal speech, moves all 4 extremities on command w/o issue. Psych: Positive SI, negative HI or AVH, anxious in appearance. Differential diagnoses: Mood disorder, infection, hypoglycemia, electrolyte abnormalities, cardiac sources, intracerebral event, toxicologic, trauma, neurologic, as well as other pathologies. Course: Patient was seen and evaluated the bedside. Full history physical exam was performed. MDM: Patient was seen due to concern for suicidality and anxiety. The patient was given some IM Ativan. Upon subsequent reassessment he was still feeling anxious. Additional Ativan and Benadryl ordered. The patient has normal white count H&H and platelet count. Kidney function is unremarkable. The patient does have elevations in liver function testing likely consistent with the patient's drinking history. The patient's alcohol is elevated to 88. The patient's UDS salicylate and Tylenol negative. Urinalysis negative with exception of small mount of blood. Kidney function unremarkable. Covid negative. Patient was pending evaluation with clinical sobriety. Will be at approximately 9:00. After further discussion with case management she noted that after discussing things with the mother that the patient has had issues with overdose and [facility] Patient was signed out to the evening physician pending reevaluation and disposition. Past Med/Surg History Medical History Back pain Back pain with radiation Laceration of left knee Liver enzyme elevation Renal stone Shortness of breath Surgical History History of ankle surgery Status post right rotator cuff repair Social History Smoking Status: Current every day smoker Tobacco Type: Cigarettes Preferred Language: Tunisian marital status: Current Living Situation: Spouse and Family current occupational status: employed Feels Safe at Home: Yes Allergies Allergies Allergy/AdvReac Type Severity Reaction Status Date / Time No Known Allergies Allergy Verified 08/02/20 14:15 Home Meds Home Medications Medication Instructions Recorded Confirmed baclofen 20 mg PO QID 08/02/20 08/02/20 bupropion HCl 300 mg PO DAILY 08/02/20 08/02/20 escitalopram oxalate 20 mg PO DAILY 08/02/20 08/02/20 gabapentin 800 mg PO QID 08/02/20 08/02/20 Results & Data (ED) Vital Signs Vital Signs - 24 hr 08/02/20 12:54 08/02/20 13:50 08/02/20 18:10 Temperature 36.5 C Temperature Source Oral Pulse Rate 77 Pulse Rate [Right Finger] 87 67 Pulse Rhythm Regular Pulse Strength Normal Respiratory Rate 20 20 20 Respiratory Effort / Characteristics Non-Labored Spontaneous Respiratory Depth Normal Respiratory Pattern Regular Blood Pressure 115/76 Blood Pressure [Right Arm] 119/89 Blood Pressure Mean 89 Blood Pressure Mean [Right Arm] 99 Blood Pressure Position Sitting Blood Pressure Position [Right Arm] Sitting Pulse Oximetry 98 99 98 Oxygen Delivery Method Room Air Room Air Room Air Sepsis Recent Fever Within 48 Hours No Sepsis New/Unexplained Change in Mental Status No Sepsis Action Taken by Nursing No Action Required Home Medications Current Medication List: was personally reviewed by me Laboratory Data Attestation: I reviewed the patient's lab results. Result diagrams: 08/02/20 14:04 08/02/20 14:04 Lab Results 08/02/20 08/02/20 08/02/20 Range/Units 13:39 13:39 14:04 WBC 5.50 (4.8-10.8) K/uL RBC 4.71 (4.7-6.1) M/uL Hgb 14.8 (14.0-18.0) g/dL Hct 42.5 (42-52) % MCV 90.2 (80-100) fL MCH 31.4 (25-34) pg MCHC 34.8 (32-36) g/dL RDW Std Deviation 43.9 (36.4-46.3) fL RDW Coeff of Norbert 13.3 (11.5-14.5) % Plt Count 300 (130-400) K/uL MPV 8.4 (7.4-10.4) fL Immature Gran % (Auto) 0.0 % Neut % (Auto) 42.6 % Lymph % (Auto) 46.0 % Lawrence % (Auto) 8.7 % Eos % (Auto) 2.2 % Baso % (Auto) 0.5 % Neut # (Auto) 2.34 (1.4-6.5) K/uL Lymph # (Auto) 2.53 (1.2-3.4) K/uL [place] # (Auto) 0.48 (0.11-0.59) K/uL Eos # (Auto) 0.12 (0-0.5) K/uL Baso # (Auto) 0.03 (0-0.2) K/uL Immature Gran # (Auto) 0.00 (0.00-0.02) K/uL Sodium (136-145) mmol/L Potassium (3.5-5.1) mmol/L Chloride (98-107) mmol/L Carbon Dioxide (21-32) mmol/L Anion Gap (3-11) BUN (7-18) mg/dl Creatinine (0.6-1.4) mg/dl Est Cr Clr Drug Dosing Est GFR ( Amer) ml/min Est GFR (Non-Af Amer) ml/min BUN/Creatinine Ratio (10-20) Glucose (70-99) mg/dl Calcium (8.5-10.1) mg/dl Total Bilirubin (0.2-1) mg/dl AST (15-37) U/L ALT (12-78) U/L Alkaline Phosphatase (45-117) U/L Total Protein (6.4-8.2) gm/dl Albumin (3.4-5.0) gm/dl Globulin (2.5-4.0) gm/dl Albumin/Globulin Ratio (0.9-2) TSH (0.300-4.500) uIu/ml Urine Color Yellow Urine Appearance Clear (Clear) Urine pH 6.5 (4.5-7.5) Ur Specific [place] 1.006 (1.000-1.030) Urine Protein Negative (Negative) Urine Glucose (UA) Negative (Negative) Urine Ketones Negative (Negative) Urine Blood 1+ H (Negative) Urine Nitrite Negative (Negative) Urine Bilirubin Negative (Negative) Urine Urobilinogen Negative (Negative) Ur Leukocyte Esterase Negative (Negative) Urine WBC (Auto) 1-5 (0-5) /hpf Urine RBC (Auto) 0-4 (0-4) /hpf U Hyaline Cast (Auto) 0 (0-5) /lpf U Epithel Cells (Auto) 0-5 (0-5) /lpf Urine Bacteria (Auto) Negative (Negative) Salicylates (2.8-20) mg/dl Urine Opiates Screen Neg (Neg) Ur Methadone, Qual Neg (Neg) Acetaminophen (10-30) ug/ml Urine Barbiturates Neg (Neg) Ur Phencyclidine (PCP) Neg (Neg) U Amphetamin/Meth Scrn Neg (Neg) MDMA (Ecstasy) Screen Neg (Neg) U Benzodiazepines Scrn Neg (Neg) Ur Cocaine Metabolite Neg (Neg) U Marijuana (THC) Screen Neg (Neg) Ethyl Alcohol mg/dL (0-3) mg/dl COVID-19 Eval Order SARS-CoV-2 (PCR) (Negative) 08/02/20 08/02/20 08/02/20 Range/Units 14:04 14:04 14:04 WBC (4.8-10.8) K/uL RBC (4.7-6.1) M/uL Hgb (14.0-18.0) g/dL Hct (42-52) % MCV (80-100) fL MCH (25-34) pg MCHC (32-36) g/dL RDW Std Deviation (36.4-46.3) fL RDW Coeff of Norbert (11.5-14.5) % Plt Count (130-400) K/uL MPV (7.4-10.4) fL Immature Gran % (Auto) % Neut % (Auto) % Lymph % (Auto) % [place] % (Auto) % Eos % (Auto) % Baso % (Auto) % Neut # (Auto) (1.4-6.5) K/uL Lymph # (Auto) (1.2-3.4) K/uL [place] # (Auto) (0.11-0.59) K/uL Eos # (Auto) (0-0.5) K/uL Baso # (Auto) (0-0.2) K/uL Immature Gran # (Auto) (0.00-0.02) K/uL Sodium 142 (136-145) mmol/L Potassium 3.5 (3.5-5.1) mmol/L Chloride 108 H (98-107) mmol/L Carbon Dioxide 23 (21-32) mmol/L Anion Gap 11.0 (3-11) BUN 8 (7-18) mg/dl Creatinine 0.68 (0.6-1.4) mg/dl Est Cr Clr Drug Dosing Not Reportable Est GFR ( Amer) 136.5 ml/min Est GFR (Non-Af Amer) 117.8 ml/min BUN/Creatinine Ratio 11.7 (10-20) Glucose 84 (70-99) mg/dl Calcium 8.8 (8.5-10.1) mg/dl Total Bilirubin 0.6 (0.2-1) mg/dl AST 265 H (15-37) U/L ALT 248 H (12-78) U/L Alkaline Phosphatase 121 H (45-117) U/L Total Protein 7.7 (6.4-8.2) gm/dl Albumin 4.0 (3.4-5.0) gm/dl Globulin 3.7 (2.5-4.0) gm/dl Albumin/Globulin Ratio 1.1 (0.9-2) TSH 0.881 (0.300-4.500) uIu/ml Urine Color Urine Appearance (Clear) Urine pH (4.5-7.5) Ur Specific [place] (1.000-1.030) Urine Protein (Negative) Urine Glucose (UA) (Negative) Urine Ketones (Negative) Urine Blood (Negative) Urine Nitrite (Negative) Urine Bilirubin (Negative) Urine Urobilinogen (Negative) Ur Leukocyte Esterase (Negative) Urine WBC (Auto) (0-5) /hpf Urine RBC (Auto) (0-4) /hpf U Hyaline Cast (Auto) (0-5) /lpf U Epithel Cells (Auto) (0-5) /lpf Urine Bacteria (Auto) (Negative) Salicylates 2.3 L (2.8-20) mg/dl Urine Opiates Screen (Neg) Ur Methadone, Qual (Neg) Acetaminophen 12 (10-30) ug/ml Urine Barbiturates (Neg) Ur Phencyclidine (PCP) (Neg) U Amphetamin/Meth Scrn (Neg) MDMA (Ecstasy) Screen (Neg) U Benzodiazepines Scrn (Neg) Ur Cocaine Metabolite (Neg) U Marijuana (THC) Screen (Neg) Ethyl Alcohol mg/dL 288.0 H (0-3) mg/dl COVID-19 Eval Order SARS-CoV-2 (PCR) (Negative) 08/02/20 08/02/20 Range/Units 14:20 14:20 WBC (4.8-10.8) K/uL RBC (4.7-6.1) M/uL Hgb (14.0-18.0) g/dL Hct (42-52) % MCV (80-100) fL MCH (25-34) pg MCHC (32-36) g/dL RDW Std Deviation (36.4-46.3) fL RDW Coeff of Norbert (11.5-14.5) % Plt Count (130-400) K/uL MPV (7.4-10.4) fL Immature Gran % (Auto) % Neut % (Auto) % Lymph % (Auto) % Lawrence % (Auto) % Eos % (Auto) % Baso % (Auto) % Neut # (Auto) (1.4-6.5) K/uL Lymph # (Auto) (1.2-3.4) K/uL [place] # (Auto) (0.11-0.59) K/uL Eos # (Auto) (0-0.5) K/uL Baso # (Auto) (0-0.2) K/uL Immature Gran # (Auto) (0.00-0.02) K/uL Sodium (136-145) mmol/L Potassium (3.5-5.1) mmol/L Chloride (98-107) mmol/L Carbon Dioxide (21-32) mmol/L Anion Gap (3-11) BUN (7-18) mg/dl Creatinine (0.6-1.4) mg/dl Est Cr Clr Drug Dosing Est GFR ( Amer) ml/min Est GFR (Non-Af Amer) ml/min BUN/Creatinine Ratio (10-20) Glucose (70-99) mg/dl Calcium (8.5-10.1) mg/dl Total Bilirubin (0.2-1) mg/dl AST (15-37) U/L ALT (12-78) U/L Alkaline Phosphatase (45-117) U/L Total Protein (6.4-8.2) gm/dl Albumin (3.4-5.0) gm/dl Globulin (2.5-4.0) gm/dl Albumin/Globulin Ratio (0.9-2) TSH (0.300-4.500) uIu/ml Urine Color Urine Appearance (Clear) Urine pH (4.5-7.5) Ur Specific [place] (1.000-1.030) Urine Protein (Negative) Urine Glucose (UA) (Negative) Urine Ketones (Negative) Urine Blood (Negative) Urine Nitrite (Negative) Urine Bilirubin (Negative) Urine Urobilinogen (Negative) Ur Leukocyte Esterase (Negative) Urine WBC (Auto) (0-5) /hpf Urine RBC (Auto) (0-4) /hpf U Hyaline Cast (Auto) (0-5) /lpf U Epithel Cells (Auto) (0-5) /lpf Urine Bacteria (Auto) (Negative) Salicylates (2.8-20) mg/dl Urine Opiates Screen (Neg) Ur Methadone, Qual (Neg) Acetaminophen (10-30) ug/ml Urine Barbiturates (Neg) Ur Phencyclidine (PCP) (Neg) U Amphetamin/Meth Scrn (Neg) MDMA (Ecstasy) Screen (Neg) U Benzodiazepines Scrn (Neg) Ur Cocaine Metabolite (Neg) U Marijuana (THC) Screen (Neg) Ethyl Alcohol mg/dL (0-3) mg/dl COVID-19 Eval Order Covid19 at [facility] SARS-CoV-2 (PCR) NEGATIVE (Negative) Administered Medications Discontinued Medications Chlordiazepoxide HCl (Chlordiazepoxide Hcl 25 Mg Cap) 50 mg PO NOW ONE Stop: 08/02/20 17:59 Last Admin: 08/02/20 18:08 Dose: 50 mg Documented by: [id number] Diphenhydramine HCl (Diphenhydramine 50 Mg/Ml Vial) 50 mg IM NOW STA Stop: 08/02/20 14:03 Last Admin: 08/02/20 14:21 Dose: 50 mg Documented by: [id number] Lorazepam (Lorazepam 2 Mg/Ml Vial (Im Use)) 1 mg IM NOW STA Stop: 08/02/20 13:33 Last Admin: 08/02/20 13:41 Dose: 1 mg Documented by: [id number] Lorazepam (Lorazepam 2 Mg/Ml Vial (Im Use)) 1 mg IM NOW STA Stop: 08/02/20 14:03 Last Admin: 08/02/20 14:21 Dose: 1 mg Documented by: [id number] Lorazepam (Lorazepam 1 Mg Tab) 1 mg SL NOW STA Stop: 08/02/20 17:59 Last Admin: 08/02/20 18:08 Dose: 1 mg Documented by: [id number] Discharge Plan Visit Data Chief Complaint: Mental Health Evaluation Stated Complaint: MENTAL HEALTH ED Provider: Brayden Bernal Discharge Problem: Alcoholic intoxication, Suicidal ideation Forms Stand Alone Forms: [facility], Suicide Prevention Resources Prescriptions Prescriptions: No Action baclofen 20 mg Tablet 20 mg PO QID RF: 0 gabapentin 800 mg tablet 800 mg PO QID RF: 0 escitalopram oxalate 20 mg tablet 20 mg PO DAILY RF: 0 bupropion HCl 300 mg tablet extended release 24 hr 300 mg PO DAILY RF: 0
[2020-08-02] MEDS ORDERED: LORazepam 2 MG/ML VIAL (IM USE) IM STA ×2 (13:32→14:02)
[2020-08-02] MEDS ORDERED: diphenhydrAMINE 50 MG/ML VIAL IM STA (14:02)
[2020-08-02 14:09] LABS: Appearance Urine Clear (Clear); Bilirubin Urine Negative (Negative); Blood Urine 1+ (Negative); Color Urine Yellow; Glucose Urine UA Negative (Negative); Ketones Urine Negative (Negative); Leukocyte Esterase Urine Negative (Negative); Nitrite Urine Negative (Negative); Protein Urine Negative (Negative); Specific Gravity Urine 1.006 (1.000-1.030); Urobilinogen Urine Negative (Negative); pH Urine 6.5 (4.5-7.5)
[2020-08-02 14:20] LABS: Basophils # (auto) 0.03 K/uL (0-0.2); Basophils % (auto) 0.5 %; Eosinophils # (auto) 0.12 K/uL (0-0.5); Eosinophils % (auto) 2.2 %; Hematocrit (blood only) 42.5 % (42-52); Hemoglobin 14.8 g/dL (14.0-18.0); Lymphocytes # (auto) 2.53 K/uL (1.2-3.4); Mean Corpuscular Hemoglobin 31.4 pg (25-34); Mean Corpuscular Hgb Conc 34.8 g/dL (32-36); Mean Corpuscular Volume 90.2 fL (80-100); Mean Platelet Volume 8.4 fL (7.4-10.4); Monocytes # (auto) 0.48 K/uL (0.11-0.59); Monocytes % (auto) 8.7 %; Neutrophils # (auto) 2.34 K/uL (1.4-6.5); Neutrophils % (auto) 42.6 %; Platelet Count 300 K/uL (130-400); RDW Coefficient of Variation 13.3 % (11.5-14.5); RDW Standard Deviation 43.9 fL (36.4-46.3); Red Blood Count 4.71 M/uL (4.7-6.1)
[2020-08-02 14:36] LABS: Bacteria Urine Automated Negative (Negative); Cast Urine Automated 0 /lpf (0-5); Epithelial Cell Urine Auto 0-5 /lpf (0-5); RBC Urine Automated 0-4 /hpf (0-4)
[2020-08-02 14:45] LABS: Alanine Aminotransferase 248 U/L (12-78); Aspartate Aminotransferase 265 U/L (15-37); BUN Creatinine Ratio 11.7 (10-20); Blood Urea Nitrogen 8 mg/dl (7-18); Calcium 8.8 mg/dl (8.5-10.1); Carbon Dioxide 23 mmol/L (21-32); Chloride 108 mmol/L (98-107); Est GFR (African American) 136.5 ml/min; Est GFR (Non-African American) 117.8 ml/min; Glucose 84 mg/dl (70-99); Potassium 3.5 mmol/L (3.5-5.1); Sodium 142 mmol/L (136-145)
[2020-08-02 14:56] LABS: Albumin Globulin Ratio 1.1 (0.9-2); Alkaline Phosphatase 121 U/L (45-117); Bilirubin,Total 0.6 mg/dl (0.2-1); Globulin 3.7 gm/dl (2.5-4.0); Thyroid Stimulating Hormone 0.881 uIu/ml (0.300-4.500); Total Protein 7.7 gm/dl (6.4-8.2)
[2020-08-02 14:57] LABS: Salicylate 2.3 mg/dl (2.8-20)
[2020-08-02 15:18] LABS: Amphetamines+Metham, Urine Neg (Neg); Barbiturates, Urine Neg (Neg); Benzodiazepine, Urine Neg (Neg); Cocaine, Urine Neg (Neg); MDMA (Ecstacy), Urine Neg (Neg); Methadone, Urine Neg (Neg); Opiate, Urine Neg (Neg); Phencyclidine, Urine Neg (Neg)
[2020-08-02] MEDS ORDERED: chlordiazePOXIDE HCl 25 MG CAP PO ONE (17:58)
[2020-08-02] MEDS ORDERED: LORazepam 1 MG TAB SL STA ×2 (17:58→21:40)
--- NOTE | 2020-08-02 20:32 | Emergency Department Note ---
ED Visit Note Received pt in sign out. H&P verified by me. the patient is receiving multiple doses of Ativan and I am concerned he is going into withdrawal. For this reason I did discuss the case with the hospitalist who did agree to admit the patient. .
[2020-08-02] MEDS ORDERED: cloNIDine HCL 0.3 MG/24 HR TRANSDERM SYS TD STA (22:39)
[2020-08-02] MEDS ORDERED: MULTI-VITAMIN INFUSION 10 ML, THIAMINE HCL 100 MG, FOLIC ACID 1 MG in SODIUM CHLORIDE 0... IV ONE (22:39)
[2020-08-02] MEDS ORDERED: GABAPENTIN 800 MG TAB PO STA (23:35)
[2020-08-02] MEDS ORDERED: NICOTINE POLACRILEX 2 MG GUM MT PRN (23:35)
[2020-08-02] MEDS ORDERED: NICOTINE 21 MG/24 HR TDSY TD STA (23:35)
--- NOTE | 2020-08-03 00:38 | History & Physical Report ---
Date of Service August 03, 2020 Assessment & Plan (1) Suicidal ideation: Admit to medical telemetry. 302 has been completed by the ED Consult psychiatry Continue his usual medications until assessed by psychiatry: Bupropion, escitalopram and gabapentin Present on Admission?: Yes (2) Alcohol withdrawal: Alcohol withdrawal/intoxication/abuse- AW protocol order set with IV Ativan Thiamine 100 mg p.o. every morning Folic acid 1 mg p.o. every morning Cessation counseling Present on Admission?: Yes (3) Alcoholic intoxication: See above Present on Admission?: Yes (4) Liver enzyme elevation: CT abdomen pelvis without contrast ordered and pending Present on Admission?: Yes History of Present Illness Chief Complaint: The patient presents to the emergency department with increasing anxiety, concern for wanting to harm himself, and concerns regarding alcohol use and withdrawal Primary Care Provider: Rik Kumar The patient is a 40-year-old male with a past medical history including kidney stone, liver enzyme elevation, left knee laceration, back pain with radiation, right rotator cuff repair, and history of self injury that required [facility] 11/29. He presents with increasing anxiety, concern for wanting to harm self, and concerns regarding alcohol use and withdrawal. Work-up in the emergency department included the following abnormalities: AST is 265, ALT 248, alcohol level 288, and negative COVID-19 testing. Patient did have a 302 petition completed by the ED. Allergies Allergy/AdvReac Type Severity Reaction Status Date / Time No Known Allergies Allergy Verified 08/02/20 14:15 Home Medications Medication Instructions Recorded Confirmed Type baclofen 20 mg PO QID 08/02/20 08/02/20 History bupropion HCl 300 mg PO DAILY 08/02/20 08/02/20 History escitalopram oxalate 20 mg PO DAILY 08/02/20 08/02/20 History gabapentin 800 mg PO QID 08/02/20 08/02/20 History Past Med/Surg History Medical History Back pain Back pain with radiation Laceration of left knee Liver enzyme elevation Renal stone Shortness of breath Surgical History History of ankle surgery Status post right rotator cuff repair Social History Smoking Status: Current every day smoker Tobacco Type: Cigarettes Second Hand Exposure: Yes; Do You Dip or Chew Tobacco: No; Hx Alcohol Use: Yes Alcohol type: hard liquor Hx Substance Use: No Preferred Language: Japanese Beliefs That Will Affect Care: None marital status: Current Living Situation: Parent current occupational status: employed Feels Safe at Home: Yes Safety Concerns: Feels Safe At This Time Assistive Devices: None Review of Systems Review of Systems: The patient denies chest pain, palpitations, shortness of breath, dyspnea on exertion, cough, lower extremity swelling, sore throat, fevers, chills, sweats, nausea, vomiting, diarrhea , constipation, abdominal pain, pelvic pain, blood in urine or stool, dysuria, urinary frequency or urgency, lightheadedness, dizziness, headache, memory loss, loss of consciousness, rash, abnormal bruising or bleeding, imbalance, focal or generalized weakness, numbness or tingling in arms or legs, generalized arthralgias or myalgias, back or neck pain, or night sweats. The review of systems is otherwise negative other than for that already noted above, and at least 10 systems have been reviewed. Physical Exam Physical Exam: The patient is awake, alert and oriented 3, well developed and well nourished, normocephalic and atraumatic, lying in bed and in no acute distress. HEENT--PERRL, EOMI, mucous membranes and oropharynx normal Neck--supple. No JVD. No bruits. Thyroid normal, trachea midline, no adenopathy. Heart--normal S1 and S2. No murmurs, rubs or gallops. Lungs--clear bilaterally, no respiratory distress, no accessory muscle use. Abdomen--normal bowel sounds and soft. Nontender. Nondistended, no hernias or masses, no organomegaly. Extremities--no cyanosis or clubbing. No edema. Dermatologic--normal skin turgor, normal color, no abnormal lymph nodes, no rash. Neurologic--cranial nerves II through XII grossly intact. Rheumatologic--normal range of motion. Psychiatric--normal affect after receiving several doses of IV Ativan in the ED Results & Data Results & Data ([facility]) Vital Signs (Past 12 Hours) Vital Signs Temp Pulse Pulse Resp BP BP Pulse Ox 08/02/20 23:32 86 18 133/81 96 08/02/20 21:15 88 16 145/90 H 99 08/02/20 18:10 67 20 119/89 98 08/02/20 13:50 87 20 99 08/02/20 12:54 97.7 F 77 20 115/76 98 Laboratory Results Laboratory Results WBC 5.50 K/uL (4.8-10.8) 08/02/20 14:04 RBC 4.71 M/uL (4.7-6.1) 08/02/20 14:04 Hgb 14.8 g/dL (14.0-18.0) 08/02/20 14:04 Hct 42.5 % (42-52) 08/02/20 14:04 MCV 90.2 fL (80-100) 08/02/20 14:04 MCH 31.4 pg (25-34) 08/02/20 14:04 MCHC 34.8 g/dL (32-36) 08/02/20 14:04 RDW Std Deviation 43.9 fL (36.4-46.3) 08/02/20 14:04 RDW Coeff of Norbert 13.3 % (11.5-14.5) 08/02/20 14:04 Plt Count 300 K/uL (130-400) 08/02/20 14:04 MPV 8.4 fL (7.4-10.4) 08/02/20 14:04 Immature Gran % (Auto) 0.0 % 08/02/20 14:04 Neut % (Auto) 42.6 % 08/02/20 14:04 Lymph % (Auto) 46.0 % 08/02/20 14:04 [place] % (Auto) 8.7 % 08/02/20 14:04 Eos % (Auto) 2.2 % 08/02/20 14:04 Baso % (Auto) 0.5 % 08/02/20 14:04 Neut # (Auto) 2.34 K/uL (1.4-6.5) 08/02/20 14:04 Lymph # (Auto) 2.53 K/uL (1.2-3.4) 08/02/20 14:04 [place] # (Auto) 0.48 K/uL (0.11-0.59) 08/02/20 14:04 Eos # (Auto) 0.12 K/uL (0-0.5) 08/02/20 14:04 Baso # (Auto) 0.03 K/uL (0-0.2) 08/02/20 14:04 Immature Gran # (Auto) 0.00 K/uL (0.00-0.02) 08/02/20 14:04 Sodium 142 mmol/L (136-145) 08/02/20 14:04 Potassium 3.5 mmol/L (3.5-5.1) 08/02/20 14:04 Chloride 108 mmol/L (98-107) H 08/02/20 14:04 Carbon Dioxide 23 mmol/L (21-32) 08/02/20 14:04 Anion Gap 11.0 (3-11) 08/02/20 14:04 BUN 8 mg/dl (7-18) 08/02/20 14:04 Creatinine 0.68 mg/dl (0.6-1.4) 08/02/20 14:04 Est Cr Clr Drug Dosing Not Reportable 08/02/20 14:04 Est GFR ( Amer) 136.5 ml/min 08/02/20 14:04 Est GFR (Non-Af Amer) 117.8 ml/min 08/02/20 14:04 BUN/Creatinine Ratio 11.7 (10-20) 08/02/20 14:04 Glucose 84 mg/dl (70-99) 08/02/20 14:04 Calcium 8.8 mg/dl (8.5-10.1) 08/02/20 14:04 Total Bilirubin 0.6 mg/dl (0.2-1) 08/02/20 14:04 AST 265 U/L (15-37) H 08/02/20 14:04 ALT 248 U/L (12-78) H 08/02/20 14:04 Alkaline Phosphatase 121 U/L (45-117) H 08/02/20 14:04 Total Protein 7.7 gm/dl (6.4-8.2) 08/02/20 14:04 Albumin 4.0 gm/dl (3.4-5.0) 08/02/20 14:04 Globulin 3.7 gm/dl (2.5-4.0) 08/02/20 14:04 Albumin/Globulin Ratio 1.1 (0.9-2) 08/02/20 14:04 TSH 0.881 uIu/ml (0.300-4.500) 08/02/20 14:04 Urine Color Yellow 08/02/20 13:39 Urine Appearance Clear (Clear) 08/02/20 13:39 Urine pH 6.5 (4.5-7.5) 08/02/20 13:39 Ur Specific [place] 1.006 (1.000-1.030) 08/02/20 13:39 Urine Protein Negative (Negative) 08/02/20 13:39 Urine Glucose (UA) Negative (Negative) 08/02/20 13:39 Urine Ketones Negative (Negative) 08/02/20 13:39 Urine Blood 1+ (Negative) H 08/02/20 13:39 Urine Nitrite Negative (Negative) 08/02/20 13:39 Urine Bilirubin Negative (Negative) 08/02/20 13:39 Urine Urobilinogen Negative (Negative) 08/02/20 13:39 Ur Leukocyte Esterase Negative (Negative) 08/02/20 13:39 Urine WBC (Auto) 1-5 /hpf (0-5) 08/02/20 13:39 Urine RBC (Auto) 0-4 /hpf (0-4) 08/02/20 13:39 U Hyaline Cast (Auto) 0 /lpf (0-5) 08/02/20 13:39 U Epithel Cells (Auto) 0-5 /lpf (0-5) 08/02/20 13:39 Urine Bacteria (Auto) Negative (Negative) 08/02/20 13:39 Salicylates 2.3 mg/dl (2.8-20) L 08/02/20 14:04 Urine Opiates Screen Neg (Neg) 08/02/20 13:39 Ur Methadone, Qual Neg (Neg) 08/02/20 13:39 Acetaminophen 12 ug/ml (10-30) 08/02/20 14:04 Urine Barbiturates Neg (Neg) 08/02/20 13:39 Ur Phencyclidine (PCP) Neg (Neg) 08/02/20 13:39 U Amphetamin/Meth Scrn Neg (Neg) 08/02/20 13:39 MDMA (Ecstasy) Screen Neg (Neg) 08/02/20 13:39 U Benzodiazepines Scrn Neg (Neg) 08/02/20 13:39 Ur Cocaine Metabolite Neg (Neg) 08/02/20 13:39 U Marijuana (THC) Screen Neg (Neg) 08/02/20 13:39 Ethyl Alcohol mg/dL 288.0 mg/dl (0-3) H 08/02/20 14:04 COVID-19 Eval Order Covid19 at [facility] 08/02/20 14:20 SARS-CoV-2 (PCR) NEGATIVE (Negative) 08/02/20 14:20 Code Status & VTE Plan Code Status Full code VTE Prophylaxis Plan VTE Prophylaxis will be ordered: Yes PG Care Time/CCT Total # of Minutes Spent Total Time Spent with Patient: Total time spent is greater than 50% in coordination of care (as documented) at patient's floor/unit and/or counseling patient: Coding Level of Care Code 22177 Initial Inpt Care Lvl 3 Diagnoses Suicidal ideation R45.851 Alcohol withdrawal F10.239 Alcoholic intoxication F10.929 Liver enzyme elevation R74.8
[2020-08-03] MEDS ORDERED: ATIVAN IV ALCOHOL WITHDRAWL IV PRN (03:02)
[2020-08-03] MEDS ORDERED: LORazepam 2 MG/4 ML VIAL IV PRN (03:02)
[2020-08-03] MEDS ORDERED: ONDANSETRON INJ 2 MG/ML 2 ML VIAL IV PRN (03:02)
[2020-08-03] MEDS ORDERED: LORazepam 3 MG/6 ML VIAL IV PRN (03:02)
[2020-08-03] MEDS: CHECK CLONIDINE PATCH PLACEMENT SCH ×4 (03:19→23:44)
[2020-08-03] MEDS: NSS + 20MEQ KCL 20 MEQ/1,000 ML BAG IV SCH ×3 (04:41→23:40)
[2020-08-03 07:32] LABS: Basophils # (auto) 0.03 K/uL (0-0.2); Basophils % (auto) 0.6 %; Eosinophils # (auto) 0.16 K/uL (0-0.5); Hematocrit (blood only) 39.1 % (42-52); Hemoglobin 13.4 g/dL (14.0-18.0); Immature Granulocytes # (auto) 0.01 K/uL (0.00-0.02); Immature Granulocytes % (auto) 0.2 %; Lymphocytes # (auto) 1.91 K/uL (1.2-3.4); Lymphocytes % (auto) 35.7 %; Mean Corpuscular Hemoglobin 31.1 pg (25-34); Mean Corpuscular Hgb Conc 34.3 g/dL (32-36); Mean Corpuscular Volume 90.7 fL (80-100); Mean Platelet Volume 8.6 fL (7.4-10.4); Monocytes # (auto) 0.39 K/uL (0.11-0.59); Monocytes % (auto) 7.3 %; Neutrophils # (auto) 2.85 K/uL (1.4-6.5); Neutrophils % (auto) 53.2 %; Platelet Count 230 K/uL (130-400); RDW Coefficient of Variation 13.3 % (11.5-14.5); RDW Standard Deviation 44.1 fL (36.4-46.3); Red Blood Count 4.31 M/uL (4.7-6.1); White Blood Count 5.35 K/uL (4.8-10.8)
[2020-08-03 07:51] LABS: Albumin Level 3.2 gm/dl (3.4-5.0); BUN Creatinine Ratio 15.5 (10-20); Calcium 8.3 mg/dl (8.5-10.1); Est GFR (African American) 137.4 ml/min; Est GFR (Non-African American) 118.5 ml/min; Potassium 3.7 mmol/L (3.5-5.1)
[2020-08-03 07:56] LABS: Albumin Globulin Ratio 1.1 (0.9-2); Globulin 2.9 gm/dl (2.5-4.0); Total Protein 6.1 gm/dl (6.4-8.2)
[2020-08-03] MEDS: THIAMINE HCL 100 MG TAB PO SCH (08:19)
[2020-08-03] MEDS: GABAPENTIN 800 MG TAB PO SCH ×4 (08:19→19:44)
[2020-08-03] MEDS: FOLIC ACID 1 MG TAB PO SCH (08:20)
[2020-08-03] MEDS: BACLOFEN 20 MG TAB PO SCH ×4 (08:20→19:44)
[2020-08-03] MEDS ORDERED: buPROPion XL 300 MG TABCR PO SCH (09:00)
[2020-08-03] MEDS ORDERED: ESCITALOPRAM OXALATE 20 MG TAB PO SCH (09:00)
--- NOTE | 2020-08-03 09:32 | CT Scan Report ---
CT SCAN OF THE ABDOMEN AND PELVIS WITHOUT CONTRAST CLINICAL HISTORY: abnormal LFT's COMPARISON STUDY: July 17, 2017 TECHNIQUE: CT scan of the abdomen and pelvis was performed from the lung bases to the proximal femurs . Images are reviewed in the axial, sagittal, and coronal planes. IV contrast was not administered fo r this examination. A dose lowering technique was utilized adhering to the principles of ALARA. CT DOSE: 999.36 mGycm FINDINGS: Lower chest: The heart is normal in size and configuration, without pericardial effusion. The lung ba ses and pleural spaces are clear. Liver: Liver is normal in size with diffuse decrease in attenuation of its parenchyma without evidenc e of focal lesions or intrahepatic biliary dilatation. Gallbladder: Unremarkable. Spleen: Normal in size and attenuation. Pancreas: Unremarkable. Adrenal glands: Unremarkable. Kidneys: No evidence of hydronephrosis. Nonobstructive nephrolithiasis is seen bilaterally. Largest c alculus is measuring 5 mm in size and seen on the right. Bowel: The small bowel and colon are normal in course and caliber. Distal aspect of esophagus is patu lous. Appendix shows normal morphology and gas filled. Overall evaluation of bowel loops is limited d ue to lack of contrast. Large amount of stool is seen within the rectum. No acute intra-abdominal pro cess is seen. Peritoneum: There is no intraperitoneal free air or abdominal ascites. Vasculature: The abdominal aorta is normal in course and caliber. Adenopathy: None. Pelvic viscera: The bladder, and pelvic viscera are unremarkable. Skeletal structures: Mild degenerative changes of the spine. Punctate sclerotic lesions are seen with in bilateral femoral head likely representing enostosis. IMPRESSION: 1. Bilateral nonobstructive nephrolithiasis. 2. Hepatic steatosis. 3. Normal appendix. 4. No acute intra-abdominal process. ACT 112: Negative or not required by law. The above report was generated using voice recognition software. It may contain grammatical, syntax o r spelling errors. Electronically signed by: Nehal Abraham DO 08/03/2020 9:31 AM
--- NOTE | 2020-08-03 13:51 | Electrocardiogram Report ---
Test Reason : Blood Pressure : / mmHG Vent. Rate : 078 BPM Atrial Rate : 078 BPM P-R Int : 158 ms QRS Dur : 094 ms QT Int : 400 ms P-R-T Axes : 047 066 038 degrees QTc Int : 456 ms Normal sinus rhythm Normal ECG When compared with ECG of 21-NOV-2019 09:45, Vent. rate has decreased BY 38 BPM Confirmed by Aries Castillo ([id number]) on 08/03/2020 1:50:32 PM Referred By: REFERRED SELF Confirmed By:Aries Castillo
[2020-08-03] MEDS: NICOTINE 14 MG/24 HR PATCH TD SCH (14:17)
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
[2020-08-03] MEDS: LORazepam 1 MG/2 ML VIAL IV PRN ×2 (14:41→18:19)
[2020-08-04] MEDS: NICOTINE 14 MG/24 HR PATCH TD SCH ×2 (01:20→14:33)
[2020-08-04 07:52] LABS: Basophils # (auto) 0.01 K/uL (0-0.2); Basophils % (auto) 0.2 %; Eosinophils # (auto) 0.31 K/uL (0-0.5); Eosinophils % (auto) 6.7 %; Hematocrit (blood only) 40.7 % (42-52); Lymphocytes # (auto) 1.65 K/uL (1.2-3.4); Lymphocytes % (auto) 35.8 %; Mean Corpuscular Hemoglobin 31.3 pg (25-34); Mean Corpuscular Hgb Conc 34.4 g/dL (32-36); Mean Corpuscular Volume 91.1 fL (80-100); Mean Platelet Volume 9.1 fL (7.4-10.4); Monocytes # (auto) 0.38 K/uL (0.11-0.59); Monocytes % (auto) 8.2 %; Neutrophils # (auto) 2.26 K/uL (1.4-6.5); Neutrophils % (auto) 49.1 %; Platelet Count 222 K/uL (130-400); RDW Coefficient of Variation 13.2 % (11.5-14.5); RDW Standard Deviation 43.9 fL (36.4-46.3); Red Blood Count 4.47 M/uL (4.7-6.1); White Blood Count 4.61 K/uL (4.8-10.8)
[2020-08-04 08:10] LABS: Albumin Level 3.4 gm/dl (3.4-5.0); BUN Creatinine Ratio 9.6 (10-20); Calcium 8.6 mg/dl (8.5-10.1); Creatinine Clr Calc Pharmacy 136.9 ml/min; Est GFR (African American) 136.5 ml/min; Est GFR (Non-African American) 117.8 ml/min; Magnesium 2.1 mg/dl (1.8-2.4); Potassium 3.6 mmol/L (3.5-5.1)
[2020-08-04 08:12] LABS: Albumin Globulin Ratio 1.1 (0.9-2); Globulin 3.1 gm/dl (2.5-4.0); Total Protein 6.5 gm/dl (6.4-8.2)
[2020-08-04] MEDS: GABAPENTIN 800 MG TAB PO SCH ×2 (08:14→14:29)
[2020-08-04] MEDS: CHECK CLONIDINE PATCH PLACEMENT SCH ×2 (08:14→16:20)
[2020-08-04] MEDS: BACLOFEN 20 MG TAB PO SCH ×2 (08:14→14:28)
[2020-08-04] MEDS: THIAMINE HCL 100 MG TAB PO SCH (08:15)
[2020-08-04] MEDS: FOLIC ACID 1 MG TAB PO SCH (08:15)
[2020-08-04] MEDS: NSS + 20MEQ KCL 20 MEQ/1,000 ML BAG IV SCH (08:15)
[2020-08-04] MEDS ORDERED: NICOTINE 14 MG/24 HR PATCH TD SCH (09:00)
[2020-08-04] MEDS: LORazepam 1 MG/2 ML VIAL IV PRN ×2 (09:16→14:30)
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
== END 2020-08-04 16:26 | DRG 897 ==
LOC: ED 12:44 → SUATTDRO 08-03 00:37 → 2N 08-03 00:37

== ENCOUNTER 2020-08-04 14:56 | Inpatient (IN) ==
[2020-08-04] MEDS ORDERED: MAGNESIUM HYDROXIDE SUSP 30 ML UDC PO PRN (15:01)
[2020-08-04] MEDS ORDERED: ALUMINUM/MAGNESIUM SUSP 30 ML UDC PO PRN (15:01)
[2020-08-04] MEDS ORDERED: LORazepam 1 MG TAB PO PRN (15:01)
[2020-08-04] MEDS ORDERED: SODIUM CHLORIDE 0.65% NA SOLN 45 ML (OCEAN) PRN (15:01)
[2020-08-04] MEDS ORDERED: hydrOXYzine HCl 25 MG TAB PO PRN (15:01)
[2020-08-04] MEDS ORDERED: ACETAMINOPHEN 325 MG TAB PO PRN (15:01)
[2020-08-04] MEDS ORDERED: BISMUTH SUBSALICYLATE LIQD 236 ML PO PRN (15:01)
[2020-08-04] MEDS: BACLOFEN 20 MG TAB PO SCH ×2 (17:46→20:55)
[2020-08-04] MEDS: GABAPENTIN 800 MG TAB PO SCH ×2 (17:46→20:55)
[2020-08-04] MEDS ORDERED: LORazepam 1 MG TAB ONE (21:03)
[2020-08-05] MEDS: hydrOXYzine HCl 25 MG TAB PO PRN ×2 (00:42→22:53)
[2020-08-05] MEDS: BACLOFEN 20 MG TAB PO SCH ×4 (08:30→20:32)
[2020-08-05] MEDS: GABAPENTIN 800 MG TAB PO SCH ×4 (08:30→20:32)
[2020-08-05] MEDS: NICOTINE 21 MG/24 HR TDSY TD SCH (08:31)
--- NOTE | 2020-08-05 13:43 | History & Physical ---
Date of Service August 05, 2020 Impression / Recommendations Impression Mr. Abdi is a 40 yo male with a significant substance abuse hx as well as 2 prior inpatient psychiatric hospitalizations for unspecified depression or PTSD (one for significant OD), recent relapse of ETOh likely resulting in additional charges. He is minimizing his ETOh use/level of dependence as well as family concerns re: his suicidal statements. It is not clear how much of his behavior was while intoxicated but he has multiple risks factors, most notably prior serious attempt and behavior shows impulsive disregard for legal and safety consequences of his actions. (1) Depressive disorder: The patient was admitted to the [facility] ([facility]) on q15 min checks (behavioral with suicide precautions) for safety. The patient will participate in group, recreational, and milieu therapies and will be offered additional individual and family sessions as clinically appropriate. He is very clear that he would like discharged as soon as possible yet is very resistant to safety planning, primarily clarifying the status of his legal charges as [facility]ci would be a serious stressor, structured activities pending confirmation of his return to work, clarification of relationship status (since direct trigger for his drinking), and family involvement as mother was petitioner and her account does not match his history. He is refusing a family meeting or meeting with probation but did sign releases and social work will gain more info to assist safety planning and confirm aftercare. He has not yet submitted a 72 hr notice and did voice anxiety about going back to [facility] and that is why he wanted to leave the medical floor. Reviewed risks of seizure with Wellbutrin and reconfirmed no felipe. Will restart Lexapro 10 mg tonight then increase and restart Wellbutrin XL 150 mg po qam and retitrate. (2) Alcohol use disorder, moderate, dependence: The patient's AUDIT score suggests problematic drinking (Zone III WHO). Brief intervention was greater than 5 min in length and included assessing readiness to quit, advice on how to reduce or abstain from alcohol, and to set a specific goal for this hospitalization. organic lab worker will also assist in anticipating barriers to sobriety and in problem-solving for solutions to those problems while arranging for referral to appropriate treatment. The patient is in action stage re: continuing Vivitrol following his relapse but doesn't want to return to rehab, "what's the point? I was doing fine". Discussed disinhibiting effects of alcohol with antidepressants and risk of interaction with prescription medications. The patient will be provided with recovery materials to continue to educate self on how to cope with their condition without drinking. Continue AWSS protocol. (3) Post traumatic stress disorder (PTSD): MNPR as reactive to noise at night and remains very irritable about his stay. Inventory Assets Strengths: desire to continue Vivitrol, monitoring by probation Needs: safety planning Risk Factors Assessment Male: Yes : Yes Do You Have Access To A Gun?: No (denies but will need to confirm with family) Mental Health Diagnoses: No Substance Use Disorders: Yes Previous Attempt: Yes Previous Psychiatric Hospitalization: Yes Protective Factors Assessment : No Responsible for Young Children: No Employed: Yes Stable Relationships: No Psychiatric History Identifying Data AZRA ABDI is a 40-year-old M transferred from the medical floor from [facility] detox. He has a history of multiple DUIs and a serious suicide attempt by overdose, and was admitted on 08/04/20 16:36 on a 201 voluntary commitment for suicidal threats. There is a 302 petitioning statement on the chart. Chief Complaint "So it was all being drunk, what do I need to do get out of here. I'm very anxious and have PTSD". 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 Family expressed concern about repeated statements about se lf-harm, most while intoxicated. He states this past weekend was "bad" as he got picked up for another DUI while on the [facility] program soon after receiving 2 doses of Narcan for unresponsiveness earlier in the same week for use of either fentanyl or heroin. He states he was 115 days sober following release from [facility] 90 day rehab in May when he relapsed on 1 pint of vodka daily to every other day. He reports panic symptoms most days that sound like withdrawal with 12 lb weight loss in 3 weeks due to presumed gastritis/poor self-care and disrupted sleep. Statements to family including hanging self, shooting himself or jumping from a bridge and his mother reports he opened the car door when she was driving at 70 mph. He maintains this was just after his DUI. It should be noted that he had a signifcant OD in November [address] to [facility] and has had at least 1 seizure in that context. He reports taking his psychiatric medications as prescribed following discharge from [facility] with refills by PCP and finds Wellbutrin helpful. He denies a history of felipe or behavioral activation related to medication. He reportedly has shown impulsive anger with punching at [employer]. Other stressors including recent SI of girlfriend and recent return to [facility] (they met in rehab). Patient continues to report he was still intoxicated and arguing with his mother when he opened the car door while she was driving. He continues to deny use of opiates following his discharge from [facility] for stomach issues/dehydration. He maintains that all of his medications were helping "alot, they got me straightened out at [facility]" and does not attribute stomach issues to medication. He states that he was started on Vivitrol monthly injection there as well, he is unsure when he is do for his next shot. He denies manic symptoms, states that when he was helping his girlfriend he was "up for three nights straight" and "won't do that again". Past Psychiatric History Previous Psych History: Previous Psych History: depression, EToh use disorder Current Psychiatric Diagnosis: PTSD Outpatient Services: [facility] plus 5 hrs/week through [facility]. Previous Psych Admissions: [facility] (02/2020), [facility] (11/2019) Do You Have Access To A Gun?: No (denies) History of Previous Suicide Attempt: Yes Describe Attempts in the Past: Overdose of alcohol and drugs 11/2019 (doxepin and [facility]TO[facility]) Past Medication Trials: Zoloft ("hated it") Do You Have Access To A Gun?: No (denies but will need to confirm with family) Past Head Trauma/Neuro History History of Concussion/Seizure: Yes (seizure during his doxepin OD) Allergies Allergy/AdvReac Type Severity Reaction Status Date / Time No Known Allergies Allergy Verified 08/02/20 14:15 Home Medications Medication Instructions Recorded Confirmed Type baclofen 20 mg PO QID 08/02/20 08/02/20 History bupropion HCl 300 mg PO DAILY 08/02/20 08/02/20 History escitalopram oxalate 20 mg PO DAILY 08/02/20 08/02/20 History gabapentin 800 mg PO QID 08/02/20 08/02/20 History Family History Family History of: Depression and Alcoholism/Drug Abuse Alcohol History Hx of Alcohol Use Over the Past 12 Months: Yes AUDIT Total Score: 27 Smoking Use Have You Smoked or Used Tobacco Products in the Last 30 Days: Yes tobacco type: cigarettes and smokeless tobacco Smoking Status: Current every day smoker Smoking packs per day: 1 Substance History Hx of Prescription Med Misuse Over the Past 12 Months: No Hx of Over the Counter Med Misuse Over the Past 12 Months: No Hx of Inhalent Misuse Over the Past 12 Months: No Hx of Organic Substance Use Over the Past 12 Months: No Hx of Illegal Substances/Street Drug Use Over Past 12 Months: Yes (Fentanyl?) Problems as a Result of Past Substance Use: Arrested, 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 Patient History Medical History Alcoholic intoxication Back pain Back pain with radiation Laceration of left knee Liver enzyme elevation Renal stone Shortness of breath Surgical History History of ankle surgery Status post right rotator cuff repair Social History Smoking Status: Current every day smoker Tobacco Type: Cigarettes Second Hand Exposure: Yes; Hx Alcohol Use: Yes Alcohol type: hard liquor Hx Substance Use: No Preferred Language: German Communication Ability: Effective Prescription Clerk Required: No Beliefs That Will Affect Care: None marital status: Current Living Situation: Parent current occupational status: employed Feels Safe at Home: Yes Assistive Devices: None Review of Systems Review of Systems: All systems reviewed & are unremarkable except as noted in HPI & below Physical Exam Psychiatric: Orientation: alert and + guarded Apperance: appropriately groomed Eye Contact: + fair eye contact Motor Behavior: no abnormal motor movements Speech: normal rate/rhythm/volume of speech Affect: + irritable affect Mood: + irritable mood Thought Process: + concrete thought process Thought Content: reality based without delusions Suicidal Thoughts: denies suicidal thoughts Homicidal Thoughts: denies homicidal thoughts Hallucinations: no auditory hallucinations and no visual hallucinations Cognition: + attention not intact Estimated Intelligence: consistent with education level Insight: + poor insight Judgement: + poor judgement Vital Signs (Past 24 Hours): Last Vital Signs Temp 36.6 C 08/05/20 11:40 Pulse 96 H 08/05/20 11:40 Resp 18 08/05/20 11:40 BP 125/83 08/05/20 11:40 Pulse Ox 100 08/04/20 22:34 Exam Statement: A physical exam was performed by the [facility] hospitalist and I accept that and Dr. Lira' assessment for the purposes of medical clearance. I accept their physicals as correct and adequate for the purposes of the inpatient physical exam. Results & Data ([facility]) Current Inpatient Medications Current Inpatient Medications: Current Inpatient Medications Acetaminophen (Acetaminophen 325 Mg Tab) 650 mg PO Q4H PRN PRN Reason: Headache or Minor Fever Stop: 09/03/20 15:00 Al Hydrox/Mg Hydrox/Simethicone (Aluminum/Magnesium Susp 30 Ml Udc) 30 ml PO Q4H PRN PRN Reason: GI Upset Stop: 09/03/20 15:00 Baclofen (Baclofen 20 Mg Tab) 20 mg PO QID [facility] Stop: 09/03/20 16:59 Last Admin: 08/05/20 08:30 Dose: 20 mg Documented by: Bismuth Subsalicylate (Bismuth Subsalicylate Liqd 236 Ml) 15 ml PO PRN PRN PRN Reason: Loose Stool Stop: 09/03/20 15:00 Bupropion HCl (Bupropion Xl 150 Mg Tabcr) 150 mg PO QAM [facility] Stop: 09/05/20 08:59 Escitalopram Oxalate (Escitalopram Oxalate 10 Mg Tab) 10 mg PO ONE ONE Stop: 08/05/20 22:01 Gabapentin (Gabapentin 800 Mg Tab) 800 mg PO QID [facility] Stop: 09/03/20 16:59 Last Admin: 08/05/20 11:32 Dose: 800 mg Documented by: Hydroxyzine HCl (Hydroxyzine Hcl 25 Mg Tab) 50 mg PO HSZ PRN PRN Reason: Insomnia Stop: 09/03/20 15:00 Last Admin: 08/05/20 00:42 Dose: 50 mg Documented by: Hydroxyzine HCl (Hydroxyzine Hcl 25 Mg Tab) 25 mg PO Q4H PRN PRN Reason: Anxiety Stop: 09/03/20 15:00 Last Admin: 08/05/20 11:32 Dose: 25 mg Documented by: Magnesium Hydroxide (Magnesium Hydroxide Susp 30 Ml Udc) 30 ml PO DAILY PRN PRN Reason: Constipation Stop: 09/03/20 15:00 Miscellaneous (Remove Nicoderm Patch) 1 ea N/A DAILY@[id number] [facility] Stop: 09/04/20 08:58 Last Admin: 08/05/20 08:32 Dose: 1 ea Documented by: Nicotine (Nicotine 21 Mg/24 Hr Tdsy) 21 mg TD QAM [facility] Stop: 09/04/20 08:59 Last Admin: 08/05/20 08:31 Dose: 21 mg Documented by: Nicotine Polacrilex (Nicotine Polacrilex 2 Mg Gum) 1 piece MT PRN PRN PRN Reason: Nicotine Withdrawal Stop: 09/03/20 15:00 Sodium Chloride (Sodium Chloride 0.65% Na Soln 45 Ml ([place])) 1 - 2 sprays NA PRN PRN PRN Reason: Nasal Dryness/Congestion Stop: 09/03/20 15:00
[2020-08-05] MEDS: NICOTINE POLACRILEX 2 MG GUM MT PRN ×3 (17:50→22:01)
[2020-08-05] MEDS ORDERED: ESCITALOPRAM OXALATE 10 MG TAB PO ONE (22:00)
[2020-08-06] MEDS: hydrOXYzine HCl 25 MG TAB PO PRN (02:44)
[2020-08-06] MEDS: NICOTINE POLACRILEX 2 MG GUM MT PRN ×2 (07:21→09:45)
[2020-08-06] MEDS ORDERED: buPROPion XL 150 MG TABCR PO SCH (09:00)
[2020-08-06] MEDS: BACLOFEN 20 MG TAB PO SCH (09:01)
[2020-08-06] MEDS: NICOTINE 21 MG/24 HR TDSY TD SCH (09:02)
[2020-08-06] MEDS: GABAPENTIN 800 MG TAB PO SCH (09:02)
--- NOTE | 2020-08-06 09:12 | Discharge Summary ---
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 Family expressed concern about repeated statements about self-harm, most while intoxicated. He states this past weekend was "bad" as he got picked up for another DUI while on the [facility] program soon after receiving 2 doses of Narcan for unresponsiveness earlier in the same week for use of either fentanyl or heroin. He states he was 115 days sober following release from [facility] 90 day rehab in May when he relapsed on 1 pint of vodka daily to every other day. He reports panic symptoms most days that sound like withdrawal with 12 lb weight loss in 3 weeks due to presumed gastritis/poor self-care and disrupted sleep. Statements to family including hanging self, shooting himself or jumping from a bridge and his mother reports he opened the car door when she was driving at 70 mph. He maintains this was just after his DUI. It should be noted that he had a signifcant OD in November 2019 requiring life flight to [facility] and has had at least 1 seizure in that context. He reports taking his psychiatric medications as prescribed following discharge from [facility] with refills by PCP and finds Wellbutrin helpful. He denies a history of felipe or behavioral activation related to medication. He reportedly has shown impulsive anger with punching at [employer]. Other stressors including recent SI of girlfriend and recent return to [facility] (they met in rehab). Patient continues to report he was still intoxicated and arguing with his mother when he opened the car door while she was driving. He continues to deny use of opiates following his discharge from [facility] for stomach issues/dehydration. He maintains that all of his medications were helping "alot, they got me straightened out at [facility]" and does not attribute stomach issues to medication. He states that he was started on Vivitrol monthly injection there as well, he is unsure when he is do for his next shot. He denies manic symptoms, states that when he was helping his girlfriend he was "up for three nights straight" and "won't do that again". Physical Exam Mental Examination See admission H&P and DOD summary. Vital Signs (Past 24 Hours) Last Vital Signs Temp 36.5 C 08/06/20 08:59 Pulse 66 08/06/20 08:59 Resp 16 08/06/20 08:59 BP 104/71 08/06/20 08:59 Pulse Ox 100 08/06/20 08:59 Principal Diagnosis depressive disorder unspecified Psychiatric Data See daily stay summary. In short, safety was maintained and the patient was cooperative with care. His outpatient pschiatric medications were restarted after he progressed through detox and clear he was not manic. He refused a family session with mother as angry re: her 302 petition initially but staff did confirm that her concerns and behaviors listed were related to substance abuse and desire for him to get help. He contacted work and probation and there are no immediate changes in his legal status that would add to SI. He has consistently denied SI and reports ongoing commitment to taking medications, including monthly Vivitrol injections and to attend his extensive outpatient D&A programming. Day of Discharge Assessment Today the patient voices readiness for discharge. They note improvement in mood and deny thoughts to harm self or others. Thoughts remain organized and they are improved from admission. There is no evidence of psychosis. They agree to take mediations as prescribed and keep follow-up appointments. They are stable for discharge to outpatient level of care. Transition of Care Transition Of Care Record: was reviewed with the patient Advance Directives Advance Directives Information Provided: Yes Advance Directives: No Mental Health Advance Directive: No Advance Directives on File: No Living Will: No Power of Car Escort: No Advance Directives Reason:: Declines as Mental Health Visit. Risk Factors Assessment Male: Yes : Yes Do You Have Access To A Gun?: No (denies but will need to confirm with family) Mental Health Diagnoses: No Substance Use Disorders: Yes Previous Attempt: Yes Previous Psychiatric Hospitalization: Yes Protective Factors Assessment : No Responsible for Young Children: No Employed: Yes Stable Relationships: No Tobacco Cessation at Discharge Tobacco Cessation Medication Prescribed at Discharge: Offered & Prescribed Practical counseling provided including: providing basic information about quitting Tobacco Cessation Outpatient Followup: Outpatient referral made to (quit line and f/u with PCP) Total Time Total Time Spent: Greater Than 30 Minutes Total Time Includes: Examination of the patient, Discharge Planning and Medication Reconciliation Hospital Course (1) Depressive disorder: The patient was admitted to the [facility] ([facility] mental health unit) on q15 min checks (behavioral with suicide precautions) for safety. The patient will participate in group, recreational, and milieu therapies and will be offered additional individual and family sessions as clinically appropriate. He is very clear that he would like discharged as soon as possible yet is very resistant to safety planning, primarily clarifying the status of his legal charges as care home would be a serious stressor, structured activities pending confirmation of his return to work, clarification of relationship status (since direct trigger for his drinking), and family involvement as mother was petitioner and her account does not match his history. He is refusing a family meeting or meeting with probation but did sign releases and social work will gain more info to assist safety planning and confirm aftercare. He has not yet submitted a 72 hr notice and did voice anxiety about going back to care home and that is why he wanted to leave the medical floor. Reviewed risks of seizure with Wellbutrin and reconfirmed no felipe. Will restart Lexapro 10 mg tonight then increase and restart Wellbutrin XL 150 mg po qam and retitrate. (2) Alcohol use disorder, moderate, dependence: The patient's AUDIT score suggests problematic drinking (Zone III WHO). Brief intervention was greater than 5 min in length and included assessing readiness to quit, advice on how to reduce or abstain from alcohol, and to set a specific goal for this hospitalization. renal social worker will also assist in anticipating barriers to sobriety and in problem-solving for solutions to those problems while arranging for referral to appropriate treatment. The patient is in action stage re: continuing Vivitrol following his relapse but doesn't want to return to rehab, "what's the point? I was doing fine". Discussed disinhibiting effects of alcohol with antidepressants and risk of interaction with prescription medications. The patient will be provided with recovery materials to continue to educate self on how to cope with their condition without drinking. Continue AWSS protocol. (3) Post traumatic stress disorder (PTSD): MNPR as reactive to noise at night and remains very irritable about his stay. Mental Health & Subst Abuse Tx Psychiatrist Name of Psychiatrist: [facility] Psych[facility]rist's Date of Appointment with Psychiatrist: 08/11/20 Time of Appointment with Psychiatrist: 2:45 p.m. (please arrive at 1:45 p.m. to complete paperwork) Psychiatric Appointment Comment: [address] [facility] Psychiatrist Release of Information: Obtained, Reviewed and Signed Therapist Name of Therapist: . Post Discharge Appointments Primary Care Physician Name Of Family Doctor: [facility] - Dr. Khurram Kumar Primary Care Date of Appointment with PCP: 08/12/20 Time of Appointment with PCP: 3:20 p.m. Provider Appointment Comment: [address] [place] [address] Primary Care Release of Information: Obtained, Reviewed and Signed Partial or Psych Rehab Name of Partial or Psych Rehab: [employer] Phone Number of Partial or Psych Rehab: [phone] Partial or Psych Rehab Appointment Comment: from 5-6 p.m. Release of Information for Partial or Psych Rehab: Obtained, Reviewed and Signed Smoking Cessation Counseling Tobacco Cessation Medication Prescribed at Discharge: Offered & Prescribed Contact Information Discharge Discharge Address: [address] [place] [id number] Discharge Plan Discharge Items Patient Disposition: Home - Self-Care Reason For Visit: DEPRESSION Discharge Diagnosis: depressive disorder unspecified Activity: Resume your previous activity Non-emergency contact: Primary Care Provider and Psychiatrist Call non-emergency contact if: you have any medication questions and your symptoms worsen Follow-up/Referrals: Rik Kumar [Primary Care Provider] - Diet: Regular Addtl Attending Provider Instructions: SPECIAL CARE INSTRUCTIONS: 1. Follow through with your scheduled aftercare appointments. If unable to keep an appointment, please call to reschedule. 2. Take your medication only as prescribed. Medication should not be changed or stopped without the approval of your doctor. In the event of worsening symptoms or concerns about side effects, contact your doctor immediately. 3. Utilize new healthy coping skills, anger management skills, and stress management skills learned during your hospitalization. Journal feelings and process them with a support person. Identify stressors or situations that may result in relapse, deterioration or inappropriate behaviors and develop a plan to deal with those issues. 4. If your coping skills are ineffective and you are in crisis, contact your outpatient providers for direction. If unable to reach your providers, please call the [facility] CRISIS LINE AT , go to the [facility] walk-in center at [address], [address], [place], or go to the closest Emergency Room. 5. Avoid alcohol and un-prescribed drugs. 6. You have been provided with the Mental Health Advance Directives Pamphlet for your review. AFTERCARE APPOINTMENTS: * Please call your insurance company prior to your scheduled appointment to confirm your aftercare providers are covered. Take your insurance information to your appointments. WHO TO CALL AND WHEN: Medical Emergencies: For questions or emergencies related to your hospital stay, please contact the Inpatient Behavioral Health Unit at [phone]. A septic tank service technician is on-call 02/10 for the Behavioral Health Unit for emergencies At any time you feel your situation is an emergency, you may also call 911 immediately. Pending Studies at Discharge: No Stand-Alone Forms: My [facility], Smoking Cessation Medications and DC Order Prescriptions: New nicotine [Nicoderm CQ] 21 mg/24 hr Patch 24 Hour 21 mg transdermal QAM 14 Days Qty: 14 RF: 0 Continued baclofen 20 mg Tablet 20 mg PO QID RF: 0 gabapentin 800 mg tablet 800 mg PO QID RF: 0 escitalopram oxalate 20 mg tablet 20 mg PO DAILY RF: 0 bupropion HCl 300 mg tablet extended release 24 hr 300 mg PO DAILY RF: 0 Discharge Orders: Discharge Order (Routine); Ordered 08/06/20 Ordered By: Kelly Mcgraw Admission Data Admit Date/Time: 08/04/20 16:36 Attending Provider: Kelly Mcgraw Admit Provider: Kelly Mcgraw Primary Care Provider: Rik Kumar Other Interventions: Discharge Summary Assessment (RN) Last Done: 08/06/20 08:59 PSY Interdisciplinary Discharge Planning Last Done: 08/06/20 09:16 Coding Level of Care Code 10344 D/C day mgmt > 30 min Diagnoses Depressive disorder F32.9 Alcohol use disorder, moderate, dependence F10.20 Post traumatic stress disorder (PTSD) F43.10
== END 2020-08-06 12:40 | disposition home or self-care (01) | DRG 881 ==
LOC: 3S 16:36